=== PATIENT | male | born 1970 | race Caucasian/White ===

== ENCOUNTER 2021-06-13 11:17 | Inpatient (IN) | payer OTHER ==
[~2021-06-13] VITALS: Ht 180.3 cm; Wt 118.3 kg
--- NOTE | 2021-06-13 11:33 | NUR ---
PT BIBRA BLACK TARRY STOOL X10 DAYS, LAST BM WAS TODAY. DENIES PAIN. ABDOMEN SOFT AND NON-DISTENDED. WILL CONTINUE TO MONITOR THE PATIENT.
[2021-06-13 12:00] LABS: LYMPHOCYTES # (AUTO) 0.5 K/uL (0.8-4.8); MONOCYTES # (AUTO) 0.2 K/uL (0.1-1.30); WHITE BLOOD COUNT (AUTO) 2.7 K/uL (4.3-11.0)
[2021-06-13 12:04] LABS: CALCIUM, SERUM 7.9 mg/dL (8.5-10.1); POTASSIUM 3.3 mmol/L (3.5-5.1)
[2021-06-13 12:09] LABS: BASOPHILS % (AUTO) 0.1 % (0.0-2.0); EOSINOPHILS % (AUTO) 0.4 % (0.0-6.0); HEMATOCRIT 34 % (39-51); HEMOGLOBIN 11.4 g/dL (13.5-17.5); LYMPHOCYTES % (AUTO) 19.9 % (20.0-44.0); MEAN CORPUSCULAR HGB CONC 33 g/dl (31.0-36.0); MEAN CORPUSCULAR VOLUME 86 fL (80-96); MONOCYTES % (AUTO) 8.2 % (2.0-12.0); NEUTROPHILS # (AUTO) 1.9 K/uL (1.8-8.9); NEUTROPHILS % (AUTO) 71.4 % (43.0-81.0); RED BLOOD CELL COUNT(AUTO) 3.96 MIL/uL (4.5-6.0)
[2021-06-13 12:10] LABS: ALBUMIN 3.2 g/dL (3.4-5.0); BILIRUBIN,DIRECT 3.4 mg/dL (0.0-0.2); BILIRUBIN,TOTAL 5.4 mg/dL (0.2-1.0); TOTAL PROTEIN, SERUM 7.5 g/dL (6.4-8.2)
[2021-06-13 12:11] LABS: PLATELET COUNT (AUTO) 26 K/uL (150-450)
[2021-06-13] MEDS ORDERED: METF-866 PO (13:29)
[2021-06-13] MEDS ORDERED: OXYB-58 PO (13:29)
[2021-06-13] MEDS ORDERED: AMLO5TAB4 PO (13:29)
[2021-06-13 13:30] LABS: LYMPHOCYTES % (MANUAL) 21 % (16-48); MONOCYTES % (MANUAL) 8 % (0-11.0); NEUTROPHILS % (MANUAL) 71 (42-76)
--- NOTE | 2021-06-13 13:37 | NUR ---
[facility] PANEL CALLED VIA EXCHANGE - LESLEE FLORES
[2021-06-13] MEDS ORDERED: ONDANSETRON HCL/PF 4 MG/2 ML VIAL IVP PRN (14:00)
[2021-06-13] MEDS ORDERED: MAG HYDROX/AL HYDROX/SIMETH 30 ML UDC PO PRN (14:00)
[2021-06-13] MEDS ORDERED: MAGNESIUM HYDROXIDE 30 ML UDC PO PRN (14:00)
[2021-06-13] MEDS ORDERED: Z GUARD REMEDY 2 OZ OINT TP PRN (14:00)
[2021-06-13] MEDS ORDERED: DEXTROSE 50%-WATER 50 ML DISP.SYRIN IV PRN (14:30)
--- NOTE | 2021-06-13 15:03 | NUR ---
ROOM 314-1
--- NOTE | 2021-06-13 15:11 | NUR ---
REPORT GIVEN TO NURSE HOWE
--- NOTE | 2021-06-13 15:53 | NUR ---
THE PATIENT IS TRANSFERED TO ASSIGNED ROOM IN STABLE CONDITION AND PER POLICY.
--- NOTE | 2021-06-13 15:57 | NUR ---
MS/PRICING ASSOCIATE NOTES RECEIVED ENDORSEMENT FROM JAZZ AYALA. PATIENT CAME FROM THE ER VIA GURNEY. PATIENT IS ALERT AND ORIENTED X2, ABLE TO MAKE NEEDS KNOWN. STABLE ON ROOM AIR. AMBULATORY BUT UNSTEADY. IV ACCESS ON LEFT AC IS INTACT AND PATENT ON SALINE LOCK. ORIENTED PATIENT TO THE UNIT. SAFETY PRECAUTIONS IN PLACED: BED LOCKED ON LOWEST POSITION, SIDE RAILS UPX2, CALL LIGHT WITHIN REACH. WILL CONTINUE TO MONITOR PATIENT.
[2021-06-13 16:00] VITALS: BP 141/94
--- NOTE | 2021-06-13 16:16 | NUR ---
MS/RN NOTES- PATIENT STARTED THROWING UP, SHAKINESS. PER PATIENT HE IS HAVING WITHDRAWAL. HE CONSUMES 4 GALLONS OF VODKA A DAY AND 3 PACKS OF CIGARETTES A DAY. NOTIFIED MARK CAMILO. AWAITING RESPONSE. WILL CONTINUE TO MONITOR.
[2021-06-13] MEDS ORDERED: IV NS 0.9% 1,000 ML IV ONE (16:30)
[2021-06-13] MEDS: LORAZEPAM INJ 2 MG/ML VIAL IV PRN ×2 (16:32→20:59)
[2021-06-13] MEDS: PANTOPRAZOLE 40 MG VIAL IV SCH (17:11)
[2021-06-13] MEDS: METFORMIN 500 MG TABLET PO SCH (17:11)
[2021-06-13] MEDS: FERROUS SULFATE (325 MG) 325 MG/TAB TABLET PO SCH (17:12)
[2021-06-13] MEDS: BLOOD SUGAR DIAGNOSTIC 1 EACH STRIP IN SCH ×2 (17:40→21:58)
[2021-06-13] MEDS ORDERED: POTASSIUM CHLORIDE 10 MEQ/50 ML PREMIXED IVPB FOR PERIPHERAL LINE IV ONE (19:00)
[2021-06-13] MEDS: POTASSIUM CL. PREMIX PERIPHER. 50 ML IV SCH ×2 (19:49→20:53)
[2021-06-13 20:00] VITALS: BP 126/65
--- NOTE | 2021-06-13 20:59 | NUR ---
RN NOTES PT REPORTING NAUSEA AND REQUESTED ATIAN FOR WITHDRAWAL SYMPTOMS PRN ATIVAN GIVEN AND ZOFRAN GIVEN AND TOLERATED WELL.
[2021-06-13] MEDS ORDERED: Folic acid 1 MG in IV D5W 50 ML IV SCH (22:30)
[2021-06-13] MEDS ORDERED: Thiamine 100 MG in IV D5W 50 ML IV SCH (22:30)
--- NOTE | 2021-06-13 23:21 | NUR ---
RN NOTES RECEIVED ORDERS FORM DR STRONG TO CHANGE PT DIET TO CLEAR LIQUIDS. AND ORDERED THIAMINE , FOLIC ACID AND MVI IN IV FLUID PER PHARMACY. ORDERS NOTED AND CARRIED OUT.
[2021-06-13] MEDS ORDERED: Thiamine 100 MG/ML VIAL ONE (23:27)
[2021-06-14] VITALS (7 sets, daily range): BP systolic 124–143; BP diastolic 70–92
--- NOTE | 2021-06-14 00:56 | NUR ---
RN NOTES RECEIVED ORDER FROM DR STRONG TO TRANSFUSE I UNIT OF PLATELETS CONSENT OBTAINED AT BEDSIDE PT UNABLE TO SIGN 2 RN WITNESSED SIGNED CONSENT. UNIT PICKED UP VERIFIED WITH NINI AYALA NO DISCOLORATION IN PRODUCT NOTED.PRE INFUSION VITAL SIGNS CHECKED WITHIN NORMAL LIMITS. WILL CONTINUE TO MONITOR.
[2021-06-14] MEDS: LORAZEPAM INJ 2 MG/ML VIAL IV PRN ×4 (01:47→21:35)
--- NOTE | 2021-06-14 01:49 | NUR ---
RN NOTES PT PLATELETS TRANSFUSION FINISHED. PT VS WITHIN NOTNAL LIMITS. PT REQUESTING PRN ATIVAN FOR WITHDRAWAL SYMPTOMS ATIVAN GIVEN AND TOLERATED WELL. WILL CONTINUE TO MONITOR.
[2021-06-14] MEDS: BLOOD SUGAR DIAGNOSTIC 1 EACH STRIP IN SCH ×4 (06:32→21:35)
--- NOTE | 2021-06-14 06:32 | NUR ---
RN NOTES PTS BS IS 89 JUICE WAS GIVEN. PT A/O X2 CONFUSED HAVING WITHDRAWAL SYMPTOMS ON ROOM AIR TOLERATING WELL. BED ALARM ON AT THI TIME ALL NURSING NEEDS MET THROUGHOUT THE SHIFT. WILL ENDORSE CARE TO DAY SHIFT NURSE.
--- NOTE | 2021-06-14 07:20 | NUR ---
RN OPENING NOTE RECEIVED PATIENT IN BED. A/O X 2-3. WITH SITTER DIAZ AT THE BED SIDE. ON ROOM AIR, NO SOB NOTED. IN NO APPARENT DISTRESS. IV ACCESS ON R WRIST #20 G, NS RUNNING AT 75 ML/HR, INTACT AND PATENT. SAFETY MEASURES MAINTAINED. BED IN LOWEST POSITION, BRAKES LOCKED. SIDE RAILS UP X2. CALL LIGHT WITHIN REACH. WILL CONTINUE PLAN OF CARE.
[2021-06-14] MEDS ORDERED: MVI ADULT 10ML VIAL = 1AMP 10 ML in IV NS 0.9% 1,000 ML IV PRN (07:30)
[2021-06-14 07:40] LABS: EOSINOPHILS % (AUTO) 0.2 % (0.0-6.0); HEMATOCRIT 33 % (39-51); HEMOGLOBIN 10.9 g/dL (13.5-17.5); LYMPHOCYTES # (AUTO) 0.1 K/uL (0.8-4.8); LYMPHOCYTES % (AUTO) 4.4 % (20.0-44.0); MEAN CORPUSCULAR HGB CONC 33 g/dl (31.0-36.0); MEAN CORPUSCULAR VOLUME 87 fL (80-96); MONOCYTES % (AUTO) 2.3 % (2.0-12.0); NEUTROPHILS # (AUTO) 1.7 K/uL (1.8-8.9); NEUTROPHILS % (AUTO) 93.1 % (43.0-81.0); RED BLOOD CELL COUNT(AUTO) 3.79 MIL/uL (4.5-6.0)
--- NOTE | 2021-06-14 07:55 | NUR ---
JAMIE CALVO CALLED FROM THE LAB REGARDING CRITICAL VALUE, WBC IS 1.8, CARLOS PULIDO WAS INFORMED LATE D/T DOCTOR'S LIST WAS NOT READY UNTIL 9 PM. AWAITING FOR ORDERS. Addendum: 06/14/21 at 929 by MELE JOSUE CORRECTION: WAS NOTE READY UNTIL 0900 AM Addendum: 06/14/21 at 31 by MELE JOSUE WRONG ACCOUNT. USER ACCOUNT WAS CALIXTO BAILEY RN
[2021-06-14 07:56] LABS: WHITE BLOOD COUNT (AUTO) 1.8 K/uL (4.3-11.0)
[2021-06-14 07:57] LABS: PLATELET COUNT (AUTO) 15 K/uL (150-450)
--- NOTE | 2021-06-14 08:00 | NUR ---
RN NOTES PATIENT REFUSING TELE MONITOR, EDUCATE ABOUT IMPORTANCE BUT STILL REFUSED.
[2021-06-14 08:09] LABS: THYROID STIMULATING HORMONE 0.454 uIU/mL (0.358-3.74)
[2021-06-14 08:36] LABS: CALCIUM, SERUM 8.1 mg/dL (8.5-10.1); CREATININE 1.1 mg/dL (0.6-1.3); MAGNESIUM 1.6 mg/dL (1.8-2.4); PHOSPHORUS 1.8 mg/dL (2.5-4.9); POTASSIUM 3.5 mmol/L (3.5-5.1)
[2021-06-14] MEDS: AMLODIPINE BESYLATE 5 MG TABLET PO SCH (08:37)
[2021-06-14] MEDS: OXYBUTYNIN CHLORIDE ER 5 MG TAB PO SCH (08:38)
[2021-06-14] MEDS: PANTOPRAZOLE 40 MG VIAL IV SCH ×2 (08:38→16:06)
[2021-06-14] MEDS: METFORMIN 500 MG TABLET PO SCH ×2 (08:38→16:06)
[2021-06-14] MEDS: FERROUS SULFATE (325 MG) 325 MG/TAB TABLET PO SCH ×2 (08:38→16:06)
[2021-06-14] MEDS ORDERED: PHARMACY ADD 1 AMP MVI TO IVF DAILY ONE BAG XX PRN (09:00)
[2021-06-14] MEDS ORDERED: MVI-12 10ML IV ONE (09:00)
[2021-06-14] MEDS ORDERED: Folic acid 1 MG in IV D5W 50 ML IV ONE (09:00)
[2021-06-14] MEDS ORDERED: Folic acid 1 MG in IV D5W 50 ML IV SCH (09:00)
--- NOTE | 2021-06-14 09:44 | NUR ---
RN NOTE RECEIVED ORDER FROM CARLOS PULIDO NP TO INFUSE 1 UNIT OF PLATELET. RECEIVED ORDER AND CARRIED OUT. INFORMED ALSO ABOUT REFUSAL OF TELE MONITOR.
[2021-06-14] MEDS: Magnesium 1GM/D5W 100ML PREMIX 100 ML IV SCH ×2 (10:22→12:17)
[2021-06-14 11:06] LABS: LYMPHOCYTES % (MANUAL) 3 % (16-48); MONOCYTES % (MANUAL) 2 % (0-11.0); NEUTROPHILS % (MANUAL) 95 (42-76)
[2021-06-14] MEDS ORDERED: NEUTRA PHOS 1 POWD.PACKET PO ONE (15:30)
[2021-06-14] MEDS ORDERED: OCTREOTIDE 50 MCG in IV NS 0.9% 50 ML IJ ONE (16:00)
--- NOTE | 2021-06-14 16:01 | NUR ---
RN NOTE NPO AFTER MIDNIGHT ORDERED BY CARLOS PULIDO REGULATORY ANALYST
[2021-06-14] MEDS ORDERED: IOHEXOL-300 100 ML VIAL IV ONE (16:56)
[2021-06-14] MEDS ORDERED: IV NS 0.9% 250 ML IV ONE (16:56)
[2021-06-14] MEDS ORDERED: CT SWABBABLE VALVE TRANS SET 1 EA INFUS.SET MC ONE (16:56)
--- NOTE | 2021-06-14 18:15 | NUR ---
RN CLOSING NOTE PATIENT RESTING IN BED. A/O X 2-3. ON ROOM AIR, NO SOB NOTED. IN NO APPARENT DISTRESS. IV ACCESS ON R WRIST #20 G AND L AC #20 G, BOTH INTACT AND PATENT. DUE MEDS GIVEN ORDERED. ALL NEEDS HAVE BEEN MET AND ATTENDED. SAFETY MEASURES MAINTAINED. BED IN LOWEST POSITION, BRAKES LOCKED. SIDE RAILS UP X2. CALL LIGHT WITHIN REACH. WILL ENDORSE CONTINUITY OF CARE TO ONCOMING SHIFT. .
--- NOTE | 2021-06-14 18:17 | NUR ---
RN NOTE STILL WAITING FOR PLATELET AVAILABILITY.
[2021-06-14] MEDS: LACTULOSE 10 G/15 ML UDC (PYXIS) PO PRN (18:27)
[2021-06-14] MEDS: OCTREOTIDE 500 MCG in IV NS 0.9% 99 ML IV PRN (18:42)
--- NOTE | 2021-06-14 20:04 | NUR ---
RN NOTES RECEIVED PATIENT IN BED, ALERT/ORIENTED X3, FORGETFUL, STABLE ON ROOM AIR, LETHARGIC, ON TELEMETRY, REFUSING TELEMETRY MONITORING, INFUSING SANDOSTATIN AT 10 ML/HR AND MVI AT 75 ML/HR. KEPT SAFE, WILL CONTINUE TO MONITOR.
[2021-06-14] MEDS: INSULIN REGULAR, HUMAN 100 UNIT/ML 3 ML VIAL SQ PRN (21:43)
--- NOTE | 2021-06-14 23:08 | NUR ---
RN NOTES PLATELET NOT AVAILABLE YET.
[2021-06-15] VITALS (8 sets, daily range): BP systolic 138–160; BP diastolic 63–87
[2021-06-15] MEDS: LORAZEPAM INJ 2 MG/ML VIAL IV PRN ×4 (01:31→21:35)
[2021-06-15] MEDS: IV NS 0.9% 1,000 ML IV PRN (05:00)
[2021-06-15] MEDS: OCTREOTIDE 500 MCG in IV NS 0.9% 99 ML IV PRN (05:41)
[2021-06-15] MEDS: INSULIN REGULAR, HUMAN 100 UNIT/ML 3 ML VIAL SQ PRN (06:03)
[2021-06-15] MEDS: BLOOD SUGAR DIAGNOSTIC 1 EACH STRIP IN SCH ×4 (06:08→23:37)
--- NOTE | 2021-06-15 06:16 | NUR ---
RN NOTES ALERT/ORIENTED X4, ROOM AIR, RESTLESS AT TIMES, TREMORS NOTED, NO DIAPHORESIS, NO HALLUCINATIONS, COOPERATIVE. ATIVAN GIVEN X2, PLATELET NOT AVAILABLE, WILL NEED TRANSFUSION WHEN AVAILABLE. SANDOSTATIN AT 50 MCG/HR OR 10 ML/HR, COMPLETED MVI, NOW ON NS AT 75 ML/HR, LAC #20 AND RIGHT WRIST #20. HOLD METFORMIN TILL 06/16/21 AT 1800, NPO SINCE AFTER MIDNIGHT, FOR GI CONSULT TODAY SECONDARY TO GI BLEEDING, CT ABDOMEN COMPLETED, AWAITING RESULTS, FOR DRESS CAP MAKER CONSULT.
--- NOTE | 2021-06-15 07:21 | NUR ---
RN OPENING NOTE- PATIENT IN BED. EASILY AWAKENED. ON ROOM AIR, NO SOB NOTED. IN NO APPARENT DISTRESS. IV ACCESS ON R WRIST #20 G, NS RUNNING AT 75 ML/HR, INTACT AND PATENT. SAFETY MEASURES MAINTAINED. BED IN LOWEST POSITION, BED LOCKED. SIDE RAILS UP X2. CALL LIGHT WITHIN REACH. WILL CONTINUE PLAN OF CARE.
[2021-06-15 07:28] LABS: BASOPHILS % (AUTO) 0.4 % (0.0-2.0); EOSINOPHILS % (AUTO) 2.3 % (0.0-6.0); HEMATOCRIT 31 % (39-51); HEMOGLOBIN 10.5 g/dL (13.5-17.5); LYMPHOCYTES # (AUTO) 0.3 K/uL (0.8-4.8); LYMPHOCYTES % (AUTO) 20.5 % (20.0-44.0); MEAN CORPUSCULAR HGB CONC 33 g/dl (31.0-36.0); MEAN CORPUSCULAR VOLUME 87 fL (80-96); MONOCYTES # (AUTO) 0.1 K/uL (0.1-1.30); MONOCYTES % (AUTO) 9.8 % (2.0-12.0); NEUTROPHILS # (AUTO) 0.9 K/uL (1.8-8.9)
[2021-06-15 07:54] LABS: PLATELET COUNT (AUTO) 14 K/uL (150-450); WHITE BLOOD COUNT (AUTO) 1.3 K/uL (4.3-11.0)
[2021-06-15 07:55] LABS: ALBUMIN 2.8 g/dL (3.4-5.0); BILIRUBIN,DIRECT 3.7 mg/dL (0.0-0.2); BILIRUBIN,TOTAL 6.2 mg/dL (0.2-1.0); CALCIUM, SERUM 7.9 mg/dL (8.5-10.1); MAGNESIUM 1.8 mg/dL (1.8-2.4); POTASSIUM 3.3 mmol/L (3.5-5.1); TOTAL PROTEIN, SERUM 6.9 g/dL (6.4-8.2)
--- NOTE | 2021-06-15 08:00 | NUR ---
RN NOTE- LAB NOTIFIED THIS RN CRITICAL LAB VALUES - WBC- 1.3, PLT - 14. BLOOD BANK NOTIFIED. ORDER FOR PLATELETS - PENDING ARRIVAL
[2021-06-15] MEDS: PANTOPRAZOLE 40 MG VIAL IV SCH ×2 (08:25→17:00)
[2021-06-15] MEDS: AMLODIPINE BESYLATE 5 MG TABLET PO SCH (08:25)
[2021-06-15] MEDS: FOLIC ACID 1 MG TABLET PO SCH (08:26)
[2021-06-15] MEDS: OXYBUTYNIN CHLORIDE ER 5 MG TAB PO SCH (08:26)
[2021-06-15] MEDS: METFORMIN 500 MG TABLET PO SCH (08:26)
[2021-06-15] MEDS: THIAMINE HCL 100 MG TABLET PO SCH (08:26)
[2021-06-15] MEDS: FERROUS SULFATE (325 MG) 325 MG/TAB TABLET PO SCH ×2 (08:26→17:00)
--- NOTE | 2021-06-15 08:37 | NUR ---
RN NOTE- ANXIETY, DISCOMFORT, IRRITABILITY. ATIVAN 2 MG ADMINISTERED. MONITORING FOR DETOX SX
[2021-06-15] MEDS ORDERED: POTASSIUM CHLORIDE 20 MEQ TAB.PRT.SR PO SCH (09:30)
--- NOTE | 2021-06-15 10:27 | NUR ---
RN NOTE/ TRANSFUSION. BP- 141/83, HR- 74, RR- 18, T- 97.9 ONE UNIT PLATELETS BEGAN INFUSION AT THIS TIME. PLATELETS 14
[2021-06-15] MEDS ORDERED: K PHOS NEUTRAL 250 MG TABLET PO ONE (10:30)
[2021-06-15] MEDS: LACTULOSE 10 G/15 ML UDC (PYXIS) PO PRN (11:10)
[2021-06-15] MEDS: LACTULOSE UDC 200 G in SODIUM CHLORIDE IRRIG SOLUTION 400 ML IR SCH ×4 (11:38→23:00)
--- NOTE | 2021-06-15 12:30 | NUR ---
RN NOTE / TRANSFUSION PLATELETS COMPLETED. BP- 140/78, HR- 74, RR- 18, T- 07.4. TOLERATED WELL.
--- NOTE | 2021-06-15 12:37 | NUR ---
RN NOTE- PT WATERY BM IN BR W ASSIST. VOIDING . UNDERGOING VARIOUS TESTS AND STUDIES .
--- NOTE | 2021-06-15 13:55 | NUR ---
RN NOTE- ANXIETY RESTLESSNESS. ATIVAN 2 MG ADMINISTERED
[2021-06-15] MEDS ORDERED: PIPERACILLIN /TAZOBACTAM 4.5 G in IV D5W 50 ML IV ONE (14:00)
[2021-06-15] MEDS ORDERED: PIPERACILLIN /TAZOBACTAM 4.5 G in IV D5W 50 ML IV SCH (14:00)
--- NOTE | 2021-06-15 14:15 | NUR ---
RN NOTE- IV HEP LOCK TO RT ARM AND LT ARM BOTH LEAKING AND COMPROMISED. BOTH REMOVED AT PRESENT. NEW HEPLOCK 22G INSERTED TO RT HAND .
[2021-06-15] MEDS: TBO-FILGRASTIM 480 MCG/0.8 ML ML SQ SCH (15:31)
[2021-06-15 15:37] LABS: IRON, SERUM 70 ug/dl (50-175); TOTAL IRON BINDING CAPACITY 318 ug/dl (250-450)
[2021-06-15 15:54] LABS: FERRITIN 142 ng/mL (8-388)
[2021-06-15] MEDS ORDERED: ANESTHESIA TRAY IN PYXIS 1 EA TRAY MC ONE (16:05)
--- NOTE | 2021-06-15 16:06 | NUR ---
RN NOTE- OR NOTIFIED THIS RN ABOUT SURGERY FOR THIS PT TODAY. ORDERED CONSENTS, QUESTION FORM, SURGICAL PACK. PRINTED, HAD PT SIGN AND PLACED IN CHART
[2021-06-15] MEDS ORDERED: FAMOTIDINE/PF INJ 20 MG/2 ML VIAL IV ONE (16:18)
--- NOTE | 2021-06-15 16:18 | NUR ---
RN NOTE- TO SURGICAL SUITE / PROCEDURE
[2021-06-15] MEDS ORDERED: SUCCINYLCHOLINE CHLORIDE 20 MG/ML VIAL ONE (16:19)
[2021-06-15] MEDS ORDERED: ACETAMINOPHEN 325 MG TABLET PO ONE (16:30)
[2021-06-15] MEDS ORDERED: diphenhydrAMINE HCL 50 MG/ML VIAL IV ONE (16:30)
[2021-06-15] MEDS ORDERED: PHYTONADIONE INJ 10 MG/1 ML AMPUL SQ ONE (17:00)
--- NOTE | 2021-06-15 18:00 | NUR ---
RN NOTE- PT RETURNED FROM SURGICAL SUITE- DX- ESOPHAGITIS, VARICES. BP- 138/64, HR-78. RR-22. T- 98.6, O2 SATS 95% 2L PM. PT COMFORTABLE, SLEEPY. IVF NS AT 75/HR. SIDE RAILS UP, BED LOCKED. MONITOR/ ASSIST
--- NOTE | 2021-06-15 18:38 | NUR ---
RN CLOSING NOTE- PT IN BED ASLEEP, NO DISTRESS, VS STABLE, NEEDS ATTENDED, IVF NS 75/HR TO RT HAND 22G HEP LOCK. O2 AT 2LPM VIA NC THOUGH PT SATS 96% RA. SIDE RAILS UP, BED LOCKED, CALL LIGHT IN REACH.
--- NOTE | 2021-06-15 19:24 | NUR ---
MS RN NOTES PT IN BED ASLEEP, NO DISTRESS NO PAIN OR DISCOMFORT NOTED, IVF NS 75/HR TO RT HAND 22G HEP LOCK. O2 AT 2LPM VIA NC FOR COMFORT.. SIDE RAILS UP, BED LOCKED, CALL LIGHT IN REACH. WILL CONTINUE TO MONITOR.
[2021-06-15 20:27] LABS: EOSINOPHILS % (MANUAL) 4 % (0-4); LYMPHOCYTES % (MANUAL) 26 % (16-48); MONOCYTES % (MANUAL) 2 % (0-11.0)
[2021-06-15 20:28] LABS: NEUTROPHILS % (MANUAL) 68 (42-76)
[2021-06-15] MEDS: PIPERACILLIN /TAZOBACTAM 3.375 G in IV D5W 100 ML IV SCH (20:35)
--- NOTE | 2021-06-15 22:01 | NUR ---
MS RN NOTES PT IV ACCESS PULLED OUT NEW ACCESS ON THE RIGHT HAND 22G FLUSHING WELL. PRN ATIVAN GIVEN FOR WITHDRAWAL SYMPTOMS OBTAINED CONSENT FOR HIDA SCAN AND CT W CONTRAST PLACED IN CHART. WILL CONTINUE TO MONITOR.
[2021-06-16] VITALS (15 sets, daily range): BP systolic 116–173; BP diastolic 68–98
[2021-06-16] MEDS: LACTULOSE UDC 200 G in SODIUM CHLORIDE IRRIG SOLUTION 400 ML IR SCH ×2 (03:00→06:39)
[2021-06-16] MEDS: PIPERACILLIN /TAZOBACTAM 3.375 G in IV D5W 100 ML IV SCH ×2 (03:15→14:55)
[2021-06-16] MEDS: LORAZEPAM INJ 2 MG/ML VIAL IV PRN ×3 (03:29→16:05)
--- NOTE | 2021-06-16 03:32 | NUR ---
MS RN NOTES PRN ATIVAN GIVEN FOR WITHDRAWAL SYMPTOMS TOLERATED WELL. PULLED OUT IV NOW HAS IV SITE ON THE L HAND 22G WILL OCNTIUE TO MONITOR.
[2021-06-16] MEDS: BLOOD SUGAR DIAGNOSTIC 1 EACH STRIP IN SCH ×3 (05:45→17:29)
--- NOTE | 2021-06-16 06:31 | NUR ---
MS RN NOTES PT IN BED ASLEEP, NO DISTRESS NO PAIN OR DISCOMFORT NOTED RT HAND 22G HEP LOCK. ON.SIDE RAILS UP, BED LOCKED, CALL LIGHT IN REACH. WILL ENDORSE CARE TO DAY SHIFT NURSE.
--- NOTE | 2021-06-16 06:49 | NUR ---
A 20g IV is needed in the mid-forearm or AC to perform the Multiphase Liver Mass CT scan. 22g IV in the hand will not work. Please call Radiology at ex. [phone] when 20g IV is inserted and patient is ready.
[2021-06-16 07:14] LABS: BASOPHILS % (AUTO) 0.2 % (0.0-2.0); EOSINOPHILS % (AUTO) 0.6 % (0.0-6.0); HEMATOCRIT 31 % (39-51); HEMOGLOBIN 10.8 g/dL (13.5-17.5); LYMPHOCYTES # (AUTO) 0.2 K/uL (0.8-4.8); LYMPHOCYTES % (AUTO) 5.7 % (20.0-44.0); MEAN CORPUSCULAR HGB CONC 34 g/dl (31.0-36.0); MEAN CORPUSCULAR VOLUME 87 fL (80-96); MONOCYTES # (AUTO) 0.2 K/uL (0.1-1.30); MONOCYTES % (AUTO) 4.4 % (2.0-12.0); NEUTROPHILS # (AUTO) 3.7 K/uL (1.8-8.9); NEUTROPHILS % (AUTO) 89.1 % (43.0-81.0); RED BLOOD CELL COUNT(AUTO) 3.59 MIL/uL (4.5-6.0); WHITE BLOOD COUNT (AUTO) 4.1 K/uL (4.3-11.0)
[2021-06-16 07:30] LABS: PLATELET COUNT (AUTO) 17 K/uL (150-450)
--- NOTE | 2021-06-16 07:34 | NUR ---
MS RN OPENING NOTE Patient in bed, awake. A/O x 3. Stable on room air, breathing evenly and unlabored. IV access on right hand #22G, intact and patent. Safety measures in place: bed in low, locked position; siderails up x 2; call light within reach; bed alarm on. Will continue to monitor.
[2021-06-16 07:39] LABS: D-DIMER 6.1 mg/L(FEU (0.17-0.50)
--- NOTE | 2021-06-16 07:43 | NUR ---
RN NOTE LAB CALLED CRITICAL VALUE OF 17 PLATELETS. STANDING ORDER TO TRANSFUSE IF BELOW < 20. LAB NOTIFIED FOR STAT PLATELETS. ORDER PLACED IN CHART, AWARE. REEDUCATED PATIENT ON TRANSFUSION REACTIONS AND RECONFIRMED CONSENT. PATIENT VERBALIZED UNDERSTANDING AT THIS TIME. WILL CONTINUE TO MONITOR
[2021-06-16 07:47] LABS: CALCIUM, SERUM 8.1 mg/dL (8.5-10.1); MAGNESIUM 1.6 mg/dL (1.8-2.4); PHOSPHORUS 1.4 mg/dL (2.5-4.9); POTASSIUM 3.3 mmol/L (3.5-5.1)
[2021-06-16] MEDS: FERROUS SULFATE (325 MG) 325 MG/TAB TABLET PO SCH ×3 (08:06→17:09)
[2021-06-16] MEDS: OXYBUTYNIN CHLORIDE ER 5 MG TAB PO SCH (08:06)
[2021-06-16] MEDS: AMLODIPINE BESYLATE 5 MG TABLET PO SCH (08:07)
[2021-06-16] MEDS: THIAMINE HCL 100 MG TABLET PO SCH (08:07)
[2021-06-16] MEDS: FOLIC ACID 1 MG TABLET PO SCH (08:07)
[2021-06-16] MEDS: PANTOPRAZOLE 40 MG VIAL IV SCH ×3 (08:17→17:09)
--- NOTE | 2021-06-16 08:28 | NUR ---
RN NOTE GAVE NEW ORDER FOR 2 UNITS OF FFP AND 1 UNIT OF PLATELETS STAT, LAB NOTIFIED. WILL CONTINUE TO MONITOR
--- NOTE | 2021-06-16 08:47 | NUR ---
SS consult requested for homelessness. SW will follow up at a later time.
[2021-06-16] MEDS ORDERED: Magnesium 1GM/D5W 100ML PREMIX 100 ML IV SCH (10:00)
[2021-06-16 10:07] LABS: AFP, TUMOR MARKER 2.9 ng/mL (0.0-8.3)
[2021-06-16 10:27] LABS: BAND % (MANUAL) 10 % (0.0-5.0); LYMPHOCYTES % (MANUAL) 8 % (16-48); METAMYELOCYTES % 1 % (0-0); MONOCYTES % (MANUAL) 2 % (0-11.0); MYELOCYTES % 1 % (0-0); NEUTROPHILS % (MANUAL) 78 (42-76)
[2021-06-16] MEDS ORDERED: POTASSIUM CHLORIDE 20 MEQ TAB.PRT.SR PO SCH ×2 (11:00→12:00)
[2021-06-16] MEDS ORDERED: MAGNESIUM OXIDE 400 MG TABLET PO ONE (11:00)
[2021-06-16] MEDS ORDERED: Sodium Phosphate 15 MMOL in IV NS 0.9% 250 ML IV SCH (11:00)
[2021-06-16] MEDS ORDERED: K PHOS NEUTRAL 250 MG TABLET PO ONE (11:00)
[2021-06-16] MEDS ORDERED: CT SWABBABLE VALVE TRANS SET 1 EA INFUS.SET MC ONE (11:19)
[2021-06-16] MEDS ORDERED: IOHEXOL-350 100 ML VIAL IV ONE (11:19)
--- NOTE | 2021-06-16 11:21 | NUR ---
NM: HIDA SCAN WAS COMPLETED. TECH:RB
[2021-06-16] MEDS: MULTIVITAMINS,THERAGRAN 1 UDTAB TABLET PO SCH (11:44)
--- NOTE | 2021-06-16 11:58 | NUR ---
RN NOTE 1 UNIT FRESH FROZEN PLASMA INITIATED VITALS DOCUMENTED. PATIENT REEDUCATED ON TRANSFUSION REACTIONS, VERBALIZED UNDERSTANDING, WILL CONTINUE TO MONITOR
[2021-06-16] MEDS ORDERED: diphenhydrAMINE HCL 50 MG/ML VIAL IV PRN (12:00)
[2021-06-16] MEDS ORDERED: ACETAMINOPHEN 325 MG TABLET PO PRN (12:00)
[2021-06-16] MEDS ORDERED: POTASSIUM CL. PREMIX PERIPHER. 50 ML IV SCH (12:00)
[2021-06-16] MEDS: ZINC SULFATE 220 MG CAPSULE PO SCH (12:06)
[2021-06-16] MEDS: DIAZEPAM 5 MG TABLET PO SCH ×2 (12:07→23:32)
--- NOTE | 2021-06-16 13:00 | NUR ---
RN NOTE MIDLINE PLACED ON PATIENT LEFT UPPER ARM # 18 GAUGE WRAPPED WITH KERLIX
--- NOTE | 2021-06-16 14:35 | NUR ---
RN NOTE 1 Unit of Platelets initiated at 1435, initial vital signs as follows: BP-155/102, Temp-97.9, RR-18, RI-86. Patient re-educated on transfusion reactions, verbalized understanding. Will continue to monitor.
[2021-06-16] MEDS: TBO-FILGRASTIM 480 MCG/0.8 ML ML SQ SCH (15:06)
--- NOTE | 2021-06-16 16:20 | NUR ---
RN NOTE Transfusion of 1 unit Platelet ended at 1420. No s/s of allergic reactions or distress noted. Vital signs as follows: Temp- 97.6, NM- 88, RR- 15, BP-157/68. Will continue to monitor.
--- NOTE | 2021-06-16 16:23 | NUR ---
"SS consult SS consult requested for homelessness. Pt. is a 51-year old male who presented to the ER for evaluation of tarry stools for the past 10 days per the EMR. Pt. stated he was brought in for drinking. Pt. stated he has fallen off a sheryl in the past because he was intoxicated. Upon SS consult, pt. is A&O x2 (pt. not alert to date and situation) and appeared unkempt. Pt. presented with a dysphoric mood and slurred speech. Pt. was disoriented. Per EMR, the pt. was administered Ativan at 9am via an IV. Pt. appears drowsy. SW explored pt.s living situation. Pt. stated they have been homeless for the past 7 years. SW offered homeless resources and pt. accepted. SW explored pt.s social support. Pt. stated he had an uncle but did not provide name or phone number. Pt. stated his uncle did not live in [place] but they spoke on the phone. Pt. stated they have no friends or family in [place]. SW explored if pt. was ambulatory. Pt. stated they wanted a walker due to lower back pain. PONCHO will notify nursing upon DC. PONCHO explored pt.s financial status. Pt. stated they were not receiving food stamps, GE, SSI or Disability. PONCHO explored pt.s substance use hx. Pt. stated they have been sober for the last 4 months. Pt. denies drug use. Per EMR, the pt. is in acute alcohol withdrawal due to heavy alcohol use. PONCHO explored pt.s psychiatric hx. Pt. stated they are diagnosed with bipolar disorder but doesnt see a doctor or use medication. Pt. denied SI/HI. Pt. denied visual/auditory hallucinations. Plan: Pt. stated he would like custodial placement. Upon discharge, PONCHO discussed the discharge plan with pt.s nurse. PONCHO will follow up the day of discharge with pt.s nurse for custodial placement. Year-round shelters: [facility] [place] [address] [place] [address] ; [facility] [place] [address] [place] [address]; [facility] [id number] [facility]. [facility] [address] [place] Shelters: [facility] Provider: [facility] [place] Address: [facility] NAngel [place]raz[place], [address] # of Beds: 47 Population Served: [facility] 6 | [facility] Dori Swan [place] Provider: [facility] Last Address: [address] [place] [address], [address] # of Beds: 66 Population Served: [facility] [place] Provider: [facility] Serve Address: [address] [facility], [address] # of Beds: 56 Population Served: [facility] [place] Provider: [facility] Address: [address] [facility], [address] # of Beds: 49 Population Served: [facility] 8 | [facility] Provider: [facility] Address: [address] [facility]. [place], [address] # of Beds: 37 Population Served: [facility] Hygiene: [facility] [place] [facility]: [address] [facility] ; [place] [facility] [address] [facility] ; [facility] [address] [facility] . Food Resources: [place] [facility] [address] [facility]; Meet Each Need with Dignity ([facility]) [address] [facility]; [facility] [address] [facility]; [facility] [address] [facility]. Mental Health resources provided: [facility] [address] [place] [address] ; [facility] [address] [facility] [address], [place] [address] ; [facility] Mental [facility] [address] [place] [address] ; [facility] [place] [address] Healthcare Clinics: [facility] [address] [facility], [address] [place]. [place] ; [facility] [address] [facility] [address] [place] [address]; [facility] [address] [facility] [phone]) [phone] Counseling--Outpatient [facility] [address] [facility] [place] [address] (Specializes in in-depth psychotherapy for emotional distress: anxiety, depression, interpersonal conflicts, life transitions, childhood abuse) [facility] [address] [place] [address] (Assist with solving problem marital difficulties, separation & divorce, aging parents, & grief, chronic & terminal illness) [facility] [address] [place] [address] (Deal with loss & grief, anxiety, marital difficulties) Homebound/Mental Health Services [address] [facility], [address] [place] [address] (Provide in-home mental services to people who are incapable of leaving their homes) [facility] for Needs of the Elderly Senior Service/Resource Center [address] [facility] [place] [address] [facility] [address] [facility] [place] [address] PSYCHIATRIC OUTPATIENT SERVICES [facility] Partial Hospitalization and Intensive Outpatient Program (Managed Care and [place] Only)[address] [facility] [phone] [facility] Partial Hospitalization and Outpatient [id number] [facility] [address] [place], [place] [phone] [facility] [id number] [facility] [address] [place], [place] [phone] [facility] Partial Hospitalization and Outpatient [id number] [place] [address], [phone] Substance Abuse resources provided included: [facility] Substance Abuse Self-Helpline ([facility]) ; [facility] [address] [facility]. [place] [address] ; [facility] [address] [facility] [address] ; [facility] [address] [facility] [place] [phone] ; [facility] [address] [facility] [phone] ; [facility] [address] [facility] [address] ; [facility] [address] [facility] [phone] ; [facility] Substance Abuse Helpline([facility] ; [facility] ; [facility]; [facility] [place]; [facility] [place]; [facility] [place]; [facility] [place]; [facility] [place]; [facility] [place]; [facility] [place]; Alcoholics Anonymous -SFV; Of-Ojlw-Imsdsmf ; Marijuana Anonymous -[facility]; Narcotics Anonymous www.na.org;"
[2021-06-16] MEDS: RIFAXIMIN 550 MG TABLET PO SCH ×2 (17:00→17:09)
[2021-06-16] MEDS: LACTULOSE 10 G/15 ML UDC (PYXIS) PO PRN (17:09)
--- NOTE | 2021-06-16 17:25 | NUR ---
RN NOTE PATIENT PULLED MIDLINE AND PERIPHERAL IV ACCESS. MD NOTIFIED WHO GAVE NEW ORDER FOR BILATERAL SOFT WRIST RESTRAINTS. REINSERTED IV # 20 GAUGE IN THE LEFT HAND
--- NOTE | 2021-06-16 17:29 | NUR ---
RN NOTE PATIENT IS ACTIVELY REFUSING ALL MEDICATIONS AT THIS TIME, MD AWARE WILL CONTINUE TRANSFUSIONS AND MONITORING
--- NOTE | 2021-06-16 17:44 | NUR ---
RN NOTE Transfusion of 1 unit of cryo No s/s of allergic reactions or distress noted. Vital signs as follows: Temp- 97.6, SD- 88, RR- 15, BP-157/68. Will continue to monitor.
--- NOTE | 2021-06-16 18:50 | NUR ---
MS RN CLOSING NOTE Patient in bed, awake. A/O x 3, able to make needs known. On room air, breathing evenly and unlabored. No SOB or s/s of distress noted. IV access on left hand #20G, intact and patent. Running FFP at 100ml/hr. Restraints on both wrist in place. Q2H safety checks performed. Safety measures maintained: bed in low, locked position; siderails up x 2; call light within reach; bed alarm on. Will endorse to file keeper nurse for BETSY.
--- NOTE | 2021-06-16 19:00 | NUR ---
in bed alert to nurse at his bed side wrist restaints on for his safety pulling out IVs and attempting to get oob FFP infusing at this time
[2021-06-17] VITALS: BP 144/88
[2021-06-17] MEDS: BLOOD SUGAR DIAGNOSTIC 1 EACH STRIP IN SCH ×5 (00:24→23:35)
[2021-06-17 00:31] VITALS: BP 150/93
[2021-06-17 01:59] VITALS: BP 128/78
[2021-06-17] MEDS: LORAZEPAM INJ 2 MG/ML VIAL IV PRN ×3 (02:17→14:54)
[2021-06-17] MEDS: OCTREOTIDE 500 MCG in IV NS 0.9% 99 ML IV PRN ×3 (04:14→23:45)
[2021-06-17] MEDS: IV NS 0.9% 1,000 ML IV PRN ×2 (04:30→16:24)
--- NOTE | 2021-06-17 04:31 | NUR ---
closing notes: 1 unit Cryo infused w/ a problem He managed to pull out his IV at the beginning of the shift prior 8PM , able to get an 18g in the right upper arm he is alert and orientated X2 wrist restraints on but he is strong and was able to snap the right wrist restraint off tearing the velco off unable to make him understand what is happening and being done to him for the good water and juice and applesauce given to him consumed 100% swallow w/o problem Ativan given X1 at 2 AM for agitation and attempting to climb OOB sandostatin infusing 10 ml hr no stools this 12 hours incontinent Urine patient needs close monitoring I sat outside his room the last 12 hours for his safety. bedbath given and linen changed 2 person assist
[2021-06-17 05:07] LABS: IMMUNOGLOBULIN A, SERUM 449 mg/dL (90-386); IMMUNOGLOBULIN G, SERUM 2057 mg/dL (603-1613); IMMUNOGLOBULIN M, SERUM 336 mg/dL (20-172)
[2021-06-17 07:06] LABS: *SPE A/G RATIO 0.9 (0.7-1.7); *SPE ALPHA-1-GLOBULIN 0.2 g/dL (0.0-0.4); *SPE ALPHA-2-GLOBULIN 0.4 g/dL (0.4-1.0); *SPE M-SPIKE Not Observed g/dL (Not Observed)
[2021-06-17 07:07] LABS: BASOPHILS % (AUTO) 0.1 % (0.0-2.0); EOSINOPHILS % (AUTO) 0.9 % (0.0-6.0); HEMATOCRIT 32 % (39-51); HEMOGLOBIN 10.8 g/dL (13.5-17.5); LYMPHOCYTES # (AUTO) 0.4 K/uL (0.8-4.8); LYMPHOCYTES % (AUTO) 9.8 % (20.0-44.0); MEAN CORPUSCULAR HGB CONC 34 g/dl (31.0-36.0); MEAN CORPUSCULAR VOLUME 88 fL (80-96); MONOCYTES # (AUTO) 0.5 K/uL (0.1-1.30); MONOCYTES % (AUTO) 12.3 % (2.0-12.0); NEUTROPHILS % (AUTO) 76.9 % (43.0-81.0); RED BLOOD CELL COUNT(AUTO) 3.61 MIL/uL (4.5-6.0); WHITE BLOOD COUNT (AUTO) 3.9 K/uL (4.3-11.0)
--- NOTE | 2021-06-17 07:25 | NUR ---
RN OPENING NOTE RECEIVED PATIENT IN BED. A/O X3. ON 02 AT 2 LPM VIA NC. NO SOB NOTED. IN NO APPARENT DISTRESS. ON BILATERAL SOFT RESTRAINT D/T PULLING OF IV LINES MULTIPLE TIMES, WILL REASSESS THIS MORNING. DENIES ANY PAIN AT THIS MOMENT. IV ACCESS AT LEONARD #18 G, NS RUNNING AT 75 ML/HR AND SANDOSTATIN RUNNING X 10 ML/HR. SAFETY MEASURES MAINTAINED. BED IN LOWEST POSITION, BRAKES LOCKED. SIDE RAILS UP X 2. CALL LIGHT WITHIN REACH. WILL CONTINUE PLAN OF CARE.
[2021-06-17 07:46] LABS: BILIRUBIN,DIRECT 4.6 mg/dL (0.0-0.2); BILIRUBIN,TOTAL 7.5 mg/dL (0.2-1.0); CALCIUM, SERUM 8.2 mg/dL (8.5-10.1); CREATININE 0.9 mg/dL (0.6-1.3); MAGNESIUM 1.6 mg/dL (1.8-2.4); PHOSPHORUS 2.1 mg/dL (2.5-4.9); POTASSIUM 3.3 mmol/L (3.5-5.1)
[2021-06-17 07:56] LABS: PLATELET COUNT (AUTO) 18 K/uL (150-450)
[2021-06-17 08:00] VITALS: BP 134/83
[2021-06-17] MEDS: ZINC SULFATE 220 MG CAPSULE PO SCH (08:24)
[2021-06-17] MEDS: FERROUS SULFATE (325 MG) 325 MG/TAB TABLET PO SCH ×2 (08:25→16:09)
[2021-06-17] MEDS: THIAMINE HCL 100 MG TABLET PO SCH (08:25)
[2021-06-17] MEDS: PANTOPRAZOLE 40 MG VIAL IV SCH ×2 (08:25→16:09)
[2021-06-17] MEDS: MULTIVITAMINS,THERAGRAN 1 UDTAB TABLET PO SCH (08:25)
[2021-06-17] MEDS: OXYBUTYNIN CHLORIDE ER 5 MG TAB PO SCH (08:25)
[2021-06-17] MEDS: RIFAXIMIN 550 MG TABLET PO SCH ×2 (08:25→16:09)
[2021-06-17] MEDS: FOLIC ACID 1 MG TABLET PO SCH (08:25)
[2021-06-17] MEDS: AMLODIPINE BESYLATE 5 MG TABLET PO SCH (08:29)
--- NOTE | 2021-06-17 09:31 | NUR ---
RN NOTE Received call from lab for a critical value, Platelet of 18. aware, no new orders. Addendum: 06/17/21 at 0933 by TARIQ WRIGHT RN Call received at 0803, informed at 08.
[2021-06-17] MEDS ORDERED: POTASSIUM CHLORIDE 20 MEQ TAB.PRT.SR PO SCH (10:00)
[2021-06-17] MEDS ORDERED: K PHOS NEUTRAL 250 MG TABLET PO ONE (10:00)
[2021-06-17] MEDS: DIAZEPAM 5 MG TABLET PO SCH ×2 (10:00→22:49)
[2021-06-17] MEDS ORDERED: MAGNESIUM OXIDE 400 MG TABLET PO ONE (10:00)
[2021-06-17] MEDS: ACETAMINOPHEN 325 MG TABLET PO PRN (11:58)
--- NOTE | 2021-06-17 12:15 | NUR ---
RN NOTE Patient refused Insulin. Educated on risks of not getting Insulin, still refused. Addendum: 06/17/21 at 1819 by TARIQ WRIGHT RN Glucose level is 158
[2021-06-17] MEDS: TBO-FILGRASTIM 480 MCG/0.8 ML ML SQ SCH (14:54)
[2021-06-17 16:00] VITALS: BP 141/80
--- NOTE | 2021-06-17 18:06 | NUR ---
RN CLOSING NOTE PATIENT RESTING IN BED. A/O X3. CURRENTLY ON ROOM AIR. NO SOB NOTED. IN NO APPARENT DISTRESS. 02 PRN FOR SUPPORT. PATIENT IS MORE ALERT AND COOPERATIVE. NO NEED FOR RESTRAINT AT THE MOMENT. DENIES ANY PAIN AND DISCOMFORT AT THIS MOMENT. IV ACCESS AT LEONARD #18 G, NS RUNNING AT 75 ML/HR AND SANDOSTATIN RUNNING X 10 ML/HR, BOTH INTACT AND PATENT. DUE MEDS GIVEN ORDERED. ALL NEEDS HAVE BEEN MET AND ATTENDED. SAFETY MEASURES MAINTAINED. BED IN LOWEST POSITION, BRAKES LOCKED. SIDE RAILS UP X 2. KEPT CALL LIGHT WITHIN REACH. WILL ENDORSE CONTINUITY OF CARE TO ONCOMING SHIFT.
--- NOTE | 2021-06-17 19:00 | NUR ---
received in bed alert and orientated x3 soft spoken call light within reach rails up and bed alarm on for safety urinal within reach
[2021-06-17 20:00] VITALS: BP 119/73
[2021-06-18] MEDS: LORAZEPAM INJ 2 MG/ML VIAL IV PRN ×3 (02:03→16:09)
[2021-06-18] MEDS: BLOOD SUGAR DIAGNOSTIC 1 EACH STRIP IN SCH ×4 (05:26→23:20)
[2021-06-18] MEDS: IV NS 0.9% 1,000 ML IV PRN ×2 (05:28→22:10)
--- NOTE | 2021-06-18 06:15 | NUR ---
closing notes: alert and orientated at times forgetful will get OOB unattended (bed Alarm sounding off) will see him standing urinating on the floor at times he will urinate in the urinal he enjoys eating many snacks served and consumed 100% no active bleeding this 12 hours
[2021-06-18 06:41] LABS: CALCIUM, SERUM 7.9 mg/dL (8.5-10.1); CREATININE 0.9 mg/dL (0.6-1.3); MAGNESIUM 1.5 mg/dL (1.8-2.4); PHOSPHORUS 1.9 mg/dL (2.5-4.9); POTASSIUM 3.6 mmol/L (3.5-5.1)
--- NOTE | 2021-06-18 07:29 | NUR ---
RN OPENING NOTE RECEIVED PATIENT IN BED. A/O X3. ON ROOM AIR. NO SOB NOTED. IN NO APPARENT DISTRESS. IV ACCESS AT LEVON #20 G, NS RUNNING AT 75 ML/HR AND SANDOSTATIN RUNNING X 10 ML/HR, BOTH INTACT AND PATENT. ABLE TO MA KE NEEDS KNOWN. SAFETY MEASURES MAINTAINED. BED IN LOWEST POSITION, BRAKES LOCKED. SIDE RAILS UP X 2. CALL LIGHT WITHIN REACH. WILL CONTINUE PLAN OF CARE. Addendum: 06/18/21 at 1025 by CALIXTO BAILEY RN 02 AT 2 LPM VIA NC PRN
[2021-06-18 08:00] VITALS: BP 131/84
[2021-06-18] MEDS: THIAMINE HCL 100 MG TABLET PO SCH (08:52)
[2021-06-18] MEDS: MULTIVITAMINS,THERAGRAN 1 UDTAB TABLET PO SCH (08:52)
[2021-06-18] MEDS: ZINC SULFATE 220 MG CAPSULE PO SCH (08:52)
[2021-06-18] MEDS: AMLODIPINE BESYLATE 5 MG TABLET PO SCH (08:52)
[2021-06-18] MEDS: FERROUS SULFATE (325 MG) 325 MG/TAB TABLET PO SCH ×2 (08:53→16:09)
[2021-06-18] MEDS: OXYBUTYNIN CHLORIDE ER 5 MG TAB PO SCH (08:53)
[2021-06-18] MEDS: PANTOPRAZOLE 40 MG VIAL IV SCH ×2 (08:53→16:09)
[2021-06-18] MEDS: RIFAXIMIN 550 MG TABLET PO SCH ×2 (08:53→16:09)
[2021-06-18] MEDS: FOLIC ACID 1 MG TABLET PO SCH (08:53)
[2021-06-18] MEDS: Magnesium 1GM/D5W 100ML PREMIX 100 ML IV SCH ×2 (09:38→10:39)
[2021-06-18] MEDS: ACETAMINOPHEN 325 MG TABLET PO PRN ×2 (09:48→21:32)
[2021-06-18] MEDS ORDERED: K PHOS NEUTRAL 250 MG TABLET PO ONE (10:00)
[2021-06-18] MEDS: DIAZEPAM 5 MG TABLET PO SCH ×2 (10:39→23:20)
[2021-06-18] MEDS: OCTREOTIDE 500 MCG in IV NS 0.9% 99 ML IV PRN (11:15)
[2021-06-18] MEDS: INSULIN REGULAR, HUMAN 100 UNIT/ML 3 ML VIAL SQ PRN (12:05)
[2021-06-18 12:50] LABS: BASOPHILS % (AUTO) 0.6 % (0.0-2.0); EOSINOPHILS % (AUTO) 1.3 % (0.0-6.0); HEMATOCRIT 31 % (39-51); HEMOGLOBIN 10.4 g/dL (13.5-17.5); LYMPHOCYTES # (AUTO) 0.4 K/uL (0.8-4.8); LYMPHOCYTES % (AUTO) 9.8 % (20.0-44.0); MEAN CORPUSCULAR HGB CONC 33 g/dl (31.0-36.0); MEAN CORPUSCULAR VOLUME 89 fL (80-96); MONOCYTES # (AUTO) 0.7 K/uL (0.1-1.30); MONOCYTES % (AUTO) 17.3 % (2.0-12.0); NEUTROPHILS # (AUTO) 2.7 K/uL (1.8-8.9); WHITE BLOOD COUNT (AUTO) 3.8 K/uL (4.3-11.0)
[2021-06-18 13:39] LABS: PLATELET COUNT (AUTO) 18 K/uL (150-450)
--- NOTE | 2021-06-18 13:39 | NUR ---
JAMIE GUERRA FROM THE LAB CALLED REGARDING CRITICAL VALUE, PLATELET IS 18. READ BACK COMPLETED. Addendum: 06/18/21 at 1458 by CALIXTO BAILEY RN SHLOMO MOSQUERA IS MADE AWARE. NO NEW ORDERS.
[2021-06-18] MEDS: LACTULOSE 10 G/15 ML UDC (PYXIS) PO PRN (15:04)
[2021-06-18 16:00] VITALS: BP 131/72
--- NOTE | 2021-06-18 18:06 | NUR ---
RN CLOSING NOTE PATIENT RESTING IN BED. A/O X2-3. ON ROOM AIR, SATURATING WELL AT 98%. NO SOB NOTED. IN NO APPARENT DISTRESS. IV ACCESS AT LEVON #22 G, NS RUNNING AT 75 ML/HR AND SANDOSTATIN RUNNING X 10 ML/HR, BOTH INTACT AND PATENT. DUE MEDS GIVEN ORDERED. ALL NEEDS HAVE BEEN MET AND ATTENDED. SAFETY MEASURES MAINTAINED. BED IN LOWEST POSITION, BRAKES LOCKED. SIDE RAILS UP X 2. CALL LIGHT WITHIN REACH. WILL ENDORSE CONTINUITY OF CARE TO ONCOMING SHIFT.
--- NOTE | 2021-06-18 19:45 | NUR ---
MS RN NOTES RECEIVED ON BED SLEEPING,HOMELESS,A/O X2,BREATHING REGULAR,NOT IN ANY FORM OF DISTRESS.IVF NS AT 75ML/HR RATE IN PROGRESS,INFUSING VIA IV PUMP.ON SANDOSTATIN DRIP AT 10ML/HR RATE.AMMONIA LEVEL HIGH,ON LACTULOSE Q 6 HOURS PRN.WILL MONITOR FOR CONFUSION.CALL LIGHT IN REACH,NEEDS ANTICIPATED.
[2021-06-18 20:00] VITALS: BP 128/88
[2021-06-19 05:55] LABS: BASOPHILS % (AUTO) 0.2 % (0.0-2.0); EOSINOPHILS % (AUTO) 1.6 % (0.0-6.0); HEMATOCRIT 29 % (39-51); HEMOGLOBIN 10.1 g/dL (13.5-17.5); LYMPHOCYTES # (AUTO) 0.3 K/uL (0.8-4.8); LYMPHOCYTES % (AUTO) 16.3 % (20.0-44.0); MEAN CORPUSCULAR HGB CONC 34 g/dl (31.0-36.0); MEAN CORPUSCULAR VOLUME 88 fL (80-96); MONOCYTES # (AUTO) 0.4 K/uL (0.1-1.30); MONOCYTES % (AUTO) 20.4 % (2.0-12.0); NEUTROPHILS # (AUTO) 1.3 K/uL (1.8-8.9); NEUTROPHILS % (AUTO) 61.5 % (43.0-81.0); RED BLOOD CELL COUNT(AUTO) 3.32 MIL/uL (4.5-6.0); WHITE BLOOD COUNT (AUTO) 2.1 K/uL (4.3-11.0)
[2021-06-19] MEDS: BLOOD SUGAR DIAGNOSTIC 1 EACH STRIP IN SCH ×3 (05:58→17:41)
[2021-06-19 06:30] LABS: PLATELET COUNT (AUTO) 19 K/uL (150-450)
[2021-06-19 06:57] LABS: CALCIUM, SERUM 7.8 mg/dL (8.5-10.1); CREATININE 0.9 mg/dL (0.6-1.3); MAGNESIUM 1.5 mg/dL (1.8-2.4); POTASSIUM 3.4 mmol/L (3.5-5.1)
--- NOTE | 2021-06-19 07:30 | NUR ---
MS RN OPENING NOTES: RECEIVED PATIENT IN BED SITTING AND AWAKE. A/O X3. PATIENT BREATHS ON ROOM AIR. NO SOB NOTED. IV ACCESS AT LEVON #20 G, INTACT AND PATENT. NO BLEEDING, NO SWELLING NOTED. NS RUNNING AT 75 ML/HR AND SANDOSTATIN RUNNING X 10 ML/HR, BOTH INTACT AND PATENT. ABLE TO MA KE NEEDS KNOWN. SAFETY MEASURES IN PLACE. BED IN LOWEST POSITION AND LOCKED. SIDE RAILS UP X 2. CALL LIGHT WITHIN REACH. WILL CONTINUE TO MONITOR.
[2021-06-19 07:32] LABS: LYMPHOCYTES % (MANUAL) 15 % (16-48); MONOCYTES % (MANUAL) 22 % (0-11.0); NEUTROPHILS % (MANUAL) 63 (42-76)
[2021-06-19] MEDS: RIFAXIMIN 550 MG TABLET PO SCH ×2 (08:31→16:49)
[2021-06-19] MEDS: PANTOPRAZOLE 40 MG VIAL IV SCH ×2 (08:31→16:49)
[2021-06-19] MEDS: FOLIC ACID 1 MG TABLET PO SCH (08:31)
[2021-06-19] MEDS: MULTIVITAMINS,THERAGRAN 1 UDTAB TABLET PO SCH (08:31)
[2021-06-19] MEDS: FERROUS SULFATE (325 MG) 325 MG/TAB TABLET PO SCH ×2 (08:32→16:50)
[2021-06-19] MEDS: ZINC SULFATE 220 MG CAPSULE PO SCH (08:32)
[2021-06-19] MEDS: THIAMINE HCL 100 MG TABLET PO SCH (08:33)
[2021-06-19] MEDS: AMLODIPINE BESYLATE 5 MG TABLET PO SCH (08:34)
[2021-06-19] MEDS: OXYBUTYNIN CHLORIDE ER 5 MG TAB PO SCH (08:34)
[2021-06-19] MEDS ORDERED: POTASSIUM CHLORIDE 20 MEQ TAB.PRT.SR PO SCH (10:00)
[2021-06-19] MEDS: Magnesium 1GM/D5W 100ML PREMIX 100 ML IV SCH ×2 (10:48→12:14)
[2021-06-19] MEDS: DIAZEPAM 5 MG TABLET PO SCH ×2 (10:59→23:00)
[2021-06-19] MEDS: INSULIN REGULAR, HUMAN 100 UNIT/ML 3 ML VIAL SQ PRN (12:23)
[2021-06-19] MEDS: OCTREOTIDE 500 MCG in IV NS 0.9% 99 ML IV PRN (12:28)
[2021-06-19] MEDS: IV NS 0.9% 1,000 ML IV PRN (12:39)
--- NOTE | 2021-06-19 13:29 | NUR ---
MS/RN NOTES SHLOMO MOSQUERA DNP ORDER MORPHINE 2MG IV EVERY 4 HOURS PRN NOTED AND CARRIED OUT.
--- NOTE | 2021-06-19 13:45 | NUR ---
RN NOTES PATIENT VERBALIZED THAT HE WAS OKAY WITH MORPHINE 2MG IV Q4 HOUR PRN, NORCO 10/325MG 1 TAB Q6HR PRN SHLOMO MOSQUERA DNP WAS AWARE AND SHLOMO MOSQUERA DNP ALSO AWARE THAT PATIENT HAVE ALLERGY WITH CODEINE. GERMAN AYALA WAS WITNESS THAT PATIENT VERBALIZES THAT HE WAS OKAY WITH MORPHINE IV. NOTED AND CARRIED OUT.
[2021-06-19] MEDS: MORPHINE SULFATE INJ 2 MG/ML DISP.SYRIN IV PRN (14:09)
--- NOTE | 2021-06-19 18:30 | NUR ---
MS RN CLOSING NOTES: PATIENT IN BED SITTING AND AWAKE. A/O X2. PATIENT IS FORGETFUL. PATIENT BREATHS ON ROOM AIR. NO SOB NOTED. IV ACCESS AT LEVON #20 G, INTACT AND PATENT. NO BLEEDING, NO SWELLING NOTED. NS RUNNING AT 75 ML/HR AND SANDOSTATIN RUNNING X 10 ML/HR, BOTH INTACT AND PATENT. ABLE TO MAKE NEEDS KNOWN. SAFETY MEASURES IN PLACE. ALL MEDICATIONS GIVEN ORDERED. PATIENT TOLERATED WELL AND COOPERATIVE. BED IN LOWEST POSITION AND LOCKED. SIDE RAILS UP X 2. CALL LIGHT AND TABLE WITHIN REACH. WILL ENDORSE NEXT SHIFT FOR CONTINUOUS OF THE CARE.
--- NOTE | 2021-06-19 19:15 | NUR ---
MS RN OPENING NOTES: RECEIVED PATIENT IN BED, AWAKE. A/O X4. NO S/S OF DISTRESS NOTED. NO COMPLAIN OF PAIN. CALL LIGHT WITHIN REACH. BED ALARM ON. BED IN LOWEST AND LOCKED POSITION. URINAL AT THE BEDSIDE. WITH SANDOSTATIN DRIP AT 10ML/HOUR. PATIENT HAS VERY SOFT VOICE.
[2021-06-19 20:00] VITALS: BP 158/70
--- NOTE | 2021-06-20 00:01 | NUR ---
BLOOD JIBSF=208, NO INSULIN COVERAGE NEEDED.
[2021-06-20] MEDS: OCTREOTIDE 500 MCG in IV NS 0.9% 99 ML IV PRN ×3 (00:31→22:55)
[2021-06-20] MEDS: IV NS 0.9% 1,000 ML IV PRN ×2 (02:24→20:19)
[2021-06-20] MEDS: BLOOD SUGAR DIAGNOSTIC 1 EACH STRIP IN SCH ×5 (06:00→23:58)
--- NOTE | 2021-06-20 06:17 | NUR ---
blood sugar twodvoa=327, no insulin coverage needed.
--- NOTE | 2021-06-20 06:23 | NUR ---
PATIENT PULLED HIS IV OUT.
[2021-06-20 06:57] LABS: BASOPHILS % (AUTO) 0.3 % (0.0-2.0); EOSINOPHILS % (AUTO) 1.7 % (0.0-6.0); HEMATOCRIT 30 % (39-51); HEMOGLOBIN 10.3 g/dL (13.5-17.5); LYMPHOCYTES # (AUTO) 0.4 K/uL (0.8-4.8); LYMPHOCYTES % (AUTO) 20.5 % (20.0-44.0); MEAN CORPUSCULAR HGB CONC 34 g/dl (31.0-36.0); MEAN CORPUSCULAR VOLUME 88 fL (80-96); MONOCYTES # (AUTO) 0.4 K/uL (0.1-1.30); MONOCYTES % (AUTO) 21.9 % (2.0-12.0); NEUTROPHILS % (AUTO) 55.6 % (43.0-81.0); RED BLOOD CELL COUNT(AUTO) 3.42 MIL/uL (4.5-6.0)
--- NOTE | 2021-06-20 06:57 | NUR ---
IV REINSERTED BY JAMIE JIMENEZ ON THE RIGHT HAND FINGER, G22.
[2021-06-20 07:06] LABS: CALCIUM, SERUM 7.8 mg/dL (8.5-10.1); MAGNESIUM 1.6 mg/dL (1.8-2.4); PHOSPHORUS 3.6 mg/dL (2.5-4.9); POTASSIUM 3.5 mmol/L (3.5-5.1)
[2021-06-20 07:21] LABS: PLATELET COUNT (AUTO) 28 K/uL (150-450); WHITE BLOOD COUNT (AUTO) 1.8 K/uL (4.3-11.0)
[2021-06-20 08:00] VITALS: BP 125/71
--- NOTE | 2021-06-20 08:00 | NUR ---
RN Opening notes: Received pt. asleep in bed, breathing is even and unlabored. IV line is clogged and can not be flushed. New IV reinserted on the left hand, with Gauge #20 and with good blood return. Received a call for the labs for a critical labs if WBC 1.8 and Platelet of 28. charge nurse notified and notified Wolfgang Page Addendum: 06/20/21 at 1434 by DIANE MUHAMMAD RN IV gauge #22 was used
[2021-06-20] MEDS: PANTOPRAZOLE 40 MG VIAL IV SCH ×2 (08:32→16:28)
[2021-06-20] MEDS: MULTIVITAMINS,THERAGRAN 1 UDTAB TABLET PO SCH (08:32)
[2021-06-20] MEDS: ZINC SULFATE 220 MG CAPSULE PO SCH (08:32)
[2021-06-20] MEDS: FOLIC ACID 1 MG TABLET PO SCH (08:32)
[2021-06-20] MEDS: AMLODIPINE BESYLATE 5 MG TABLET PO SCH (08:32)
[2021-06-20] MEDS: RIFAXIMIN 550 MG TABLET PO SCH ×2 (08:33→16:28)
[2021-06-20] MEDS: OXYBUTYNIN CHLORIDE ER 5 MG TAB PO SCH (08:33)
[2021-06-20] MEDS: FERROUS SULFATE (325 MG) 325 MG/TAB TABLET PO SCH ×2 (08:33→16:28)
[2021-06-20] MEDS: THIAMINE HCL 100 MG TABLET PO SCH (08:33)
[2021-06-20] MEDS: Magnesium 1GM/D5W 100ML PREMIX 100 ML IV SCH ×2 (10:33→11:53)
[2021-06-20] MEDS: DIAZEPAM 5 MG TABLET PO SCH ×2 (11:18→22:09)
[2021-06-20 12:01] LABS: BAND % (MANUAL) 1 % (0.0-5.0); LYMPHOCYTES % (MANUAL) 21 % (16-48); MONOCYTES % (MANUAL) 22 % (0-11.0); NEUTROPHILS % (MANUAL) 56 (42-76)
[2021-06-20 16:00] VITALS: BP 117/73
--- NOTE | 2021-06-20 19:40 | NUR ---
RN OPENING NOTES RECEIVED PT IN BED, ASLEEP, AWAKENS TO VERBAL STIMULI. AOx3. ON RA AND TOLERATING WELL. NO SOB NOTED. NO S/SX OF RESPIRATORY DISTRESS NOTED. IV ACCESS IN L HAND #22G RUNNING NS @ 75ML/HR. SAFETY PRECAUTIONS IN PLACE: BED IN LOWEST, LOCKED POSITION, BRAKES ON, AND SIDERAILS UPx2. TABLE AND CALL LIGHT WITHIN REACH. WILL CONTINUE TO MONITOR.
[2021-06-20 20:00] VITALS: BP 131/59
--- NOTE | 2021-06-20 20:54 | NUR ---
PER DR. AN LEAVE SANDOSTATIN ON 10 ML/HR. HAVE DAY DOCTOR WHO IS FAMILIAR WITH PATIENT TITRATE SANDOSTATIN.
[2021-06-20] MEDS: MORPHINE SULFATE INJ 2 MG/ML DISP.SYRIN IV PRN (23:34)
--- NOTE | 2021-06-20 23:35 | NUR ---
ADMINISTERED MORPHINE FOR PAIN PER MD ORDER. VS WNL. WILL CONTINUE TO MONITOR.
[2021-06-21] MEDS: BLOOD SUGAR DIAGNOSTIC 1 EACH STRIP IN SCH ×3 (05:45→17:26)
[2021-06-21 06:35] LABS: BASOPHILS % (AUTO) 0.4 % (0.0-2.0); EOSINOPHILS % (AUTO) 1.4 % (0.0-6.0); HEMATOCRIT 34 % (39-51); HEMOGLOBIN 11.5 g/dL (13.5-17.5); LYMPHOCYTES # (AUTO) 0.4 K/uL (0.8-4.8); LYMPHOCYTES % (AUTO) 21.8 % (20.0-44.0); MEAN CORPUSCULAR HGB CONC 34 g/dl (31.0-36.0); MEAN CORPUSCULAR VOLUME 88 fL (80-96); MONOCYTES # (AUTO) 0.5 K/uL (0.1-1.30); MONOCYTES % (AUTO) 22.6 % (2.0-12.0); NEUTROPHILS # (AUTO) 1.1 K/uL (1.8-8.9); NEUTROPHILS % (AUTO) 53.8 % (43.0-81.0); RED BLOOD CELL COUNT(AUTO) 3.87 MIL/uL (4.5-6.0)
--- NOTE | 2021-06-21 06:48 | NUR ---
RN CLOSING NOTES PT IN BED, ASLEEP, AWAKENS TO VERBAL STIMULI. AOx3. ON RA AND TOLERATING WELL. NO SOB NOTED. NO S/SX OF RESPIRATORY DISTRESS NOTED. IV ACCESS IN L HAND #22G RUNNING NS @ 75ML/HR. ALL NEEDS MET. PT KEPT CLEAN AND DRY. TREATED PAIN ONCE DURING SHIFT. SAFETY PRECAUTIONS IN PLACE: BED IN LOWEST, LOCKED POSITION, BRAKES ON, AND SIDERAILS UPx2. TABLE AND CALL LIGHT WITHIN REACH. WILL ENDORSE TO ONCOMING SHIFT FOR BETSY.
[2021-06-21 06:55] LABS: ALBUMIN 2.8 g/dL (3.4-5.0); BILIRUBIN,DIRECT 2.3 mg/dL (0.0-0.2); BILIRUBIN,TOTAL 3.5 mg/dL (0.2-1.0); CALCIUM, SERUM 8.1 mg/dL (8.5-10.1); CREATININE 1.1 mg/dL (0.6-1.3); MAGNESIUM 1.7 mg/dL (1.8-2.4); PHOSPHORUS 3.9 mg/dL (2.5-4.9); POTASSIUM 3.7 mmol/L (3.5-5.1); TOTAL PROTEIN, SERUM 7.2 g/dL (6.4-8.2)
[2021-06-21 07:26] LABS: PLATELET COUNT (AUTO) 34 K/uL (150-450)
--- NOTE | 2021-06-21 07:30 | NUR ---
RN OPENING NOTES: RECEIVED PT IN BED, ASLEEP, AWAKENS TO VERBAL STIMULI. AOx3. ON RA AND TOLERATING WELL. NO SOB NOTED. NO S/SX OF RESPIRATORY DISTRESS NOTED. IV ACCESS IN L HAND #22G RUNNING NS @ 75ML/HR. SAFETY PRECAUTIONS IN PLACE: BED IN LOWEST, LOCKED POSITION, BRAKES ON, AND SIDE RAILS UPx2. TABLE AND CALL LIGHT WITHIN REACH. WILL CONTINUE TO MONITOR.
[2021-06-21 08:00] VITALS: BP 130/74
[2021-06-21] MEDS ORDERED: MAGNESIUM OXIDE 400 MG TABLET PO ONE (08:30)
[2021-06-21] MEDS: RIFAXIMIN 550 MG TABLET PO SCH ×2 (08:40→16:23)
[2021-06-21] MEDS: OXYBUTYNIN CHLORIDE ER 5 MG TAB PO SCH (08:41)
[2021-06-21] MEDS: PANTOPRAZOLE 40 MG VIAL IV SCH ×2 (08:41→16:23)
[2021-06-21] MEDS: FERROUS SULFATE (325 MG) 325 MG/TAB TABLET PO SCH ×2 (08:41→16:23)
[2021-06-21] MEDS: AMLODIPINE BESYLATE 5 MG TABLET PO SCH (08:41)
[2021-06-21] MEDS: FOLIC ACID 1 MG TABLET PO SCH (08:42)
[2021-06-21] MEDS: ZINC SULFATE 220 MG CAPSULE PO SCH (08:55)
[2021-06-21] MEDS: THIAMINE HCL 100 MG TABLET PO SCH (08:55)
[2021-06-21] MEDS: MULTIVITAMINS,THERAGRAN 1 UDTAB TABLET PO SCH (08:55)
[2021-06-21] MEDS: MORPHINE SULFATE INJ 2 MG/ML DISP.SYRIN IV PRN ×2 (08:56→16:24)
[2021-06-21] MEDS: OCTREOTIDE 500 MCG in IV NS 0.9% 99 ML IV PRN (10:05)
[2021-06-21 10:57] LABS: BAND % (MANUAL) 1 % (0.0-5.0); LYMPHOCYTES % (MANUAL) 18 % (16-48); METAMYELOCYTES % 1 % (0-0); MONOCYTES % (MANUAL) 22 % (0-11.0); MYELOCYTES % 2 % (0-0); NEUTROPHILS % (MANUAL) 56 (42-76)
[2021-06-21] MEDS: DIAZEPAM 5 MG TABLET PO SCH ×2 (11:09→22:45)
[2021-06-21] MEDS: INSULIN REGULAR, HUMAN 100 UNIT/ML 3 ML VIAL SQ PRN ×2 (11:40→17:46)
[2021-06-21] MEDS: IV NS 0.9% 1,000 ML IV PRN (15:01)
[2021-06-21 16:00] VITALS: BP 132/77
--- NOTE | 2021-06-21 18:42 | NUR ---
RN CLOSING NOTES: PT IN BED, AWAKE . AOx3. ON RA AND TOLERATING WELL. NO SOB NOTED. NO S/SX OF RESPIRATORY DISTRESS NOTED. IV ACCESS IN L HAND #22 G RUNNING NS @ 75ML/HR. DUE MEDS GIVEN ORDERED. PATIENT COMPLIANT AND TOLERATED WELL. SAFETY PRECAUTIONS IN PLACE: BED IN LOWEST, LOCKED POSITION, BRAKES ON, AND SIDE RAILS UPx2. TABLE AND CALL LIGHT WITHIN REACH. WILL ENDORSE ONCOMING SHIFT FOR BETSY.
--- NOTE | 2021-06-21 19:15 | NUR ---
MS RN OPENING NOTES: RECEIVED PATIENT IN BED, AWAKE, A/O X4. NO S/S OF DISTRESS NOTED. NO COMPLAIN OF PAIN. CALL LIGHT WITHIN REACH. BED IN LOWEST AND LOCKED POSITION. BED ALARM ON. NO BLEEDING NOTED. URINAL AT THE BEDSIDE.
[2021-06-21 20:00] VITALS: BP 134/72
--- NOTE | 2021-06-22 00:25 | NUR ---
BLOOD SUGAR =98, NO INSULIN COVERAGE NEEDED.
[2021-06-22] MEDS: MORPHINE SULFATE INJ 2 MG/ML DISP.SYRIN IV PRN ×4 (02:55→22:32)
[2021-06-22] MEDS: BLOOD SUGAR DIAGNOSTIC 1 EACH STRIP IN SCH ×5 (06:00→23:11)
--- NOTE | 2021-06-22 06:19 | NUR ---
blood sugar=91, no insulin coverage needed.
[2021-06-22 07:28] LABS: CALCIUM, SERUM 8.1 mg/dL (8.5-10.1); CREATININE 0.8 mg/dL (0.6-1.3); POTASSIUM 3.7 mmol/L (3.5-5.1)
--- NOTE | 2021-06-22 07:30 | NUR ---
RN OPENING NOTES: RECEIVED PT IN BED, ASLEEP, AWAKENS TO VERBAL STIMULI. AOx3. ON RA AND TOLERATING WELL. NO SOB NOTED. NO S/SX OF RESPIRATORY DISTRESS NOTED. IV ACCESS IN L FA #22G RUNNING NS @ 75ML/HR. SAFETY PRECAUTIONS IN PLACE: BED IN LOWEST, LOCKED POSITION, BRAKES ON, AND SIDE RAILS UPx2. TABLE AND CALL LIGHT WITHIN REACH. WILL CONTINUE TO MONITOR.
[2021-06-22 08:14] LABS: BASOPHILS % (AUTO) 0.5 % (0.0-2.0); EOSINOPHILS % (AUTO) 1.2 % (0.0-6.0); HEMATOCRIT 33 % (39-51); HEMOGLOBIN 11.2 g/dL (13.5-17.5); LYMPHOCYTES # (AUTO) 0.4 K/uL (0.8-4.8); LYMPHOCYTES % (AUTO) 18.3 % (20.0-44.0); MEAN CORPUSCULAR HGB CONC 34 g/dl (31.0-36.0); MEAN CORPUSCULAR VOLUME 88 fL (80-96); MONOCYTES # (AUTO) 0.4 K/uL (0.1-1.30); MONOCYTES % (AUTO) 16.6 % (2.0-12.0); NEUTROPHILS # (AUTO) 1.5 K/uL (1.8-8.9); NEUTROPHILS % (AUTO) 63.4 % (43.0-81.0); RED BLOOD CELL COUNT(AUTO) 3.74 MIL/uL (4.5-6.0); WHITE BLOOD COUNT (AUTO) 2.3 K/uL (4.3-11.0)
[2021-06-22 08:24] LABS: PLATELET COUNT (AUTO) 44 K/uL (150-450)
[2021-06-22 08:36] VITALS: BP 119/70
[2021-06-22] MEDS: THIAMINE HCL 100 MG TABLET PO SCH (08:51)
[2021-06-22] MEDS: RIFAXIMIN 550 MG TABLET PO SCH ×2 (08:51→16:07)
[2021-06-22] MEDS: PANTOPRAZOLE 40 MG TABLET.DR PO SCH ×2 (08:51→21:08)
[2021-06-22] MEDS: MULTIVITAMINS,THERAGRAN 1 UDTAB TABLET PO SCH (08:51)
[2021-06-22] MEDS: ZINC SULFATE 220 MG CAPSULE PO SCH (08:51)
[2021-06-22] MEDS: AMLODIPINE BESYLATE 5 MG TABLET PO SCH (08:52)
[2021-06-22] MEDS: FERROUS SULFATE (325 MG) 325 MG/TAB TABLET PO SCH ×2 (08:52→16:07)
[2021-06-22] MEDS: FOLIC ACID 1 MG TABLET PO SCH (08:52)
[2021-06-22] MEDS: OXYBUTYNIN CHLORIDE ER 5 MG TAB PO SCH (08:52)
[2021-06-22] MEDS: Magnesium 1GM/D5W 100ML PREMIX 100 ML IV SCH ×2 (10:05→11:06)
[2021-06-22] MEDS: DIAZEPAM 5 MG TABLET PO SCH ×2 (11:06→23:11)
[2021-06-22 11:07] LABS: BAND % (MANUAL) 1 % (0.0-5.0); EOSINOPHILS % (MANUAL) 3 % (0-4); LYMPHOCYTES % (MANUAL) 19 % (16-48); MONOCYTES % (MANUAL) 15 % (0-11.0); NEUTROPHILS % (MANUAL) 62 (42-76)
[2021-06-22] MEDS: INSULIN REGULAR, HUMAN 100 UNIT/ML 3 ML VIAL SQ PRN ×2 (11:15→18:14)
[2021-06-22] MEDS: IV NS 0.9% 1,000 ML IV PRN (13:27)
[2021-06-22 16:00] VITALS: BP 136/74
--- NOTE | 2021-06-22 18:30 | NUR ---
RN CLOSING NOTES: PT IN BED, AWAKE . AOx3. ON RA AND TOLERATING WELL. NO SOB NOTED. NO S/SX OF RESPIRATORY DISTRESS NOTED. IV ACCESS IN L UA#22 G RUNNING NS @ 75ML/HR. DUE MEDS GIVEN ORDERED. PATIENT COMPLIANT AND TOLERATED WELL. SAFETY PRECAUTIONS IN PLACE: BED IN LOWEST, LOCKED POSITION, BRAKES ON, AND SIDE RAILS UPx2. TABLE AND CALL LIGHT WITHIN REACH. WILL ENDORSE ONCOMING SHIFT FOR BETSY.
--- NOTE | 2021-06-22 19:30 | NUR ---
MS RN NOTES RECEIVED ON BED A/O X4,FORGETFUL,BREATHING REGULAR,NOT IN ANY FORM OF DISTRESS,SALINE LOCK LEFT FOREARM INTACT AND PATENT,IVF NS AY 75ML/HR RATE INFUSING WELL VIA IV PUMP.NOTED MULTIPLE BRUISES ON RIGHT AND LEFT ARM.DENIES DISCOMFORTS AT THE MOMENT.CALL LIGHT IN REACH,NEEDS ANTICIPATED.
[2021-06-22 20:00] VITALS: BP 103/77
--- NOTE | 2021-06-22 22:32 | NUR ---
MS RN NOTES C/O ABDOMINAL PAIN 8/10 ON PAIN SCALE,MORPHINE 2MG IV GIVEN ORDERED.
--- NOTE | 2021-06-23 | NUR ---
MS RN NOTES ACCU-CHECK BLOOD SUGAR CHECK 106,NO INSULIN COVERAGE.
[2021-06-23] MEDS: IV NS 0.9% 1,000 ML IV PRN ×2 (03:36→22:15)
--- NOTE | 2021-06-23 05:30 | NUR ---
MS RN NOTES ACCU-CHECK BLOOD SUGAR CHECK 95,NO INSULIN COVERAGE
[2021-06-23] MEDS: BLOOD SUGAR DIAGNOSTIC 1 EACH STRIP IN SCH ×3 (06:14→18:08)
[2021-06-23] MEDS: MORPHINE SULFATE INJ 2 MG/ML DISP.SYRIN IV PRN ×4 (06:25→22:29)
[2021-06-23 06:27] LABS: BASOPHILS % (AUTO) 0.5 % (0.0-2.0); EOSINOPHILS % (AUTO) 0.8 % (0.0-6.0); HEMATOCRIT 35 % (39-51); HEMOGLOBIN 11.7 g/dL (13.5-17.5); LYMPHOCYTES # (AUTO) 0.5 K/uL (0.8-4.8); LYMPHOCYTES % (AUTO) 18.2 % (20.0-44.0); MEAN CORPUSCULAR HGB CONC 34 g/dl (31.0-36.0); MEAN CORPUSCULAR VOLUME 89 fL (80-96); MONOCYTES # (AUTO) 0.3 K/uL (0.1-1.30); MONOCYTES % (AUTO) 13.3 % (2.0-12.0); NEUTROPHILS # (AUTO) 1.8 K/uL (1.8-8.9); NEUTROPHILS % (AUTO) 67.2 % (43.0-81.0); RED BLOOD CELL COUNT(AUTO) 3.88 MIL/uL (4.5-6.0); WHITE BLOOD COUNT (AUTO) 2.6 K/uL (4.3-11.0)
[2021-06-23 06:38] LABS: ALBUMIN 2.9 g/dL (3.4-5.0); BILIRUBIN,TOTAL 3.3 mg/dL (0.2-1.0); CALCIUM, SERUM 7.9 mg/dL (8.5-10.1); CREATININE 1.1 mg/dL (0.6-1.3); MAGNESIUM 1.8 mg/dL (1.8-2.4); PHOSPHORUS 3.4 mg/dL (2.5-4.9); TOTAL PROTEIN, SERUM 7.5 g/dL (6.4-8.2)
--- NOTE | 2021-06-23 06:56 | NUR ---
MS RN NOTES ON BED A/O X3-4,MORE ALERT THAN BEFORE,WILL CONTINUE TO MONITOR LAB VALUES.IN NO ACUTE DISTRESS
[2021-06-23 06:59] LABS: PLATELET COUNT (AUTO) 45 K/uL (150-450)
--- NOTE | 2021-06-23 07:30 | NUR ---
MS RN OPENING NOTE RECEIVED PT AWAKE IN BED. A/O X4. PT IS STABLE ON ROOM AIR WITH NO SOB OR S/S OF RESPIRATORY DISTRESS NOTED. PT HAS NO C/O PAIN OR DISCOMFORT AT THIS TIME. IV ACCESS IN LEFT FOREARM #22 GAUGE RUNNING NS AT 75 ML/HR, INTACT AND PATENT. SAFETY PRECAUTIONS MAINTAINED. BED IN LOWEST LOCKED POSITION, HOB ELEVATED, SIDE RAILS UP X2. CALL LIGHT AND TABLE WITHIN REACH. WILL CONTINUE TO MONITOR.
[2021-06-23 07:36] LABS: BAND % (MANUAL) 2 % (0.0-5.0); EOSINOPHILS % (MANUAL) 2 % (0-4); LYMPHOCYTES % (MANUAL) 18 % (16-48); MONOCYTES % (MANUAL) 11 % (0-11.0); NEUTROPHILS % (MANUAL) 67 (42-76)
[2021-06-23 08:36] VITALS: BP 99/60
[2021-06-23] MEDS: THIAMINE HCL 100 MG TABLET PO SCH (09:00)
[2021-06-23] MEDS: FERROUS SULFATE (325 MG) 325 MG/TAB TABLET PO SCH ×2 (09:00→16:46)
[2021-06-23] MEDS: FOLIC ACID 1 MG TABLET PO SCH (09:00)
[2021-06-23] MEDS: MULTIVITAMINS,THERAGRAN 1 UDTAB TABLET PO SCH (09:00)
[2021-06-23] MEDS: PANTOPRAZOLE 40 MG TABLET.DR PO SCH ×2 (09:00→20:24)
[2021-06-23] MEDS: OXYBUTYNIN CHLORIDE ER 5 MG TAB PO SCH (09:00)
[2021-06-23] MEDS: ZINC SULFATE 220 MG CAPSULE PO SCH (09:00)
[2021-06-23] MEDS: RIFAXIMIN 550 MG TABLET PO SCH ×2 (09:00→16:45)
[2021-06-23] MEDS: AMLODIPINE BESYLATE 5 MG TABLET PO SCH (09:02)
[2021-06-23 10:00] VITALS: BP 105/68
[2021-06-23] MEDS: DIAZEPAM 5 MG TABLET PO SCH ×2 (10:31→22:09)
--- NOTE | 2021-06-23 11:55 | NUR ---
"SS note for Discharge Placement: SS followed up for discharge planning. SW offered pt. senior living placement and tap card. Pt. was ambivalent about going to a homeless senior living. Pt. asked how much a board and care was. SW told pt. it was about 900 dollars a month. Pt. stated it was too expensive. Pt. stated he has a friends house he could stay at but did not provide SW any information. Patient stated he will be calling his friend. SW told pt. to tell the nurse if he changed his mind about senior living or board and care. SW will remain available as needed. SW left the following homeless resources and tap card with pt. Year-round shelters: [place] [address] [place] [address] ; [place] [place] [facility] [place] [address] [place] [address]; [place] [facility] [id number] [facility] [address] Winter Shelters: [facility] Provider: [facility] Address: [address] [facility], [address] # of Beds: 47 Population Served: [facility] 6 | [facility] Provider: [facility] Address: [address], [address] # of Beds: 66 Population Served: [facility] [place] Provider: [facility] Address: [address] [facility], [address] # of Beds: 56 Population Served: [facility] Kwan J[place] Provider: /[facility] Address: [address] [facility], [address] # of Beds: 49 Population Served: [facility] 8 | [facility] [place] Provider: [facility] Address: [address] [facility], [address] # of Beds: 37 Population Served: [facility] Hygiene: [facility]: [address] [address] [place] ; [facility] [address] [facility] ; [facility] [address] [place] Maryanne . Food Resources: [employer] [facility] at [facility]- [address] [place]; Meet Each Need with Dignity ([facility]) [address] [place]; [facility] [address] [facility]; [facility] [address] [facility] Keller. Mental Health resources provided: [facility] [address] [place], [place] [address] ; [facility] [address] [facility] [address], [place] [address] ; [facility] [address] [address] [place], [place] [id number] ; [facility] [address] [place], [place] [phone] Healthcare Clinics: [facility] [address] [facility], [address] [place]. [place] ; [facility] [address] [place] [address]; [facility] [address] [facility]. [place] [address] [phone] Counseling--Outpatient [facility] [address], [address] [place], [place] [address] (Specializes in in-depth psychotherapy for emotional distress: anxiety, depression, interpersonal conflicts, life transitions, childhood abuse) [facility] [address] [place] [address] (Assist with solving problem marital difficulties, separation & divorce, aging parents, & grief, chronic & terminal illness) [facility] [address] [place] [address] (Deal with loss & grief, anxiety, marital difficulties) Homebound/Mental Health Services [address], [address] [place], [place] [address] (Provide in-home mental services to people who are incapable of leaving their homes) [facility] Elderly Senior Service/Resource Center [address] [place] [address] [facility] [address] [place] [address] PSYCHIATRIC OUTPATIENT SERVICES [facility] Partial Hospitalization and Intensive Outpatient Program (Managed Care and [place] Only)[address] [facility] [phone] [facility] Partial Hospitalization and Outpatient [address] [place], [place] [phone] [facility] [place] Hac[address] [facility] [address] [place], [place] [phone] [facility] Partial Hospitalization and Outpatient [address] [place], [phone] Substance Abuse resources provided included: [facility] Substance Abuse Self-Helpline ([facility]) ; [facility] [address] [facility]. [place] [address] ; [facility] [address] [facility] [address] ; [facility] [address] [facility] [address] ; [facility] [address] [facility] [address] ; [facility] Treatment [facility] [address] [facility] [address] ; [facility] [address] [facility] [phone] ; [facility] Substance Abuse Helpline(SAS)[facility] ; [facility] ; [facility] [place]; [facility] [place]; [facility] [place]; [facility] Rodney Madd[place]; [facility] [place]; [place] [facility] [place]; [facility] [place]; [facility] [place], [facility]. [facility] Mariah; Alcoholics Anonymous -[facility]; Uo-Hrje-Mmxfaeb ; Marijuana Anonymous [facility]; Narcotics Anonymous www.na.org;"
[2021-06-23 16:03] VITALS: BP 139/70
--- NOTE | 2021-06-23 18:43 | NUR ---
MS RN CLOSING NOTE PT AWAKE IN BED. A/O X4. PT IS STABLE ON ROOM AIR WITH NO SOB OR S/S OF RESPIRATORY DISTRESS NOTED. PT HAS NO C/O PAIN OR DISCOMFORT AT THIS TIME. IV ACCESS IN LEFT FOREARM #22 GAUGE RUNNING NS AT 75 ML/HR, INTACT AND PATENT. ALL NEEDS MET AT THIS TIME. SAFETY PRECAUTIONS MAINTAINED. BED IN LOWEST LOCKED POSITION, HOB ELEVATED, SIDE RAILS UP X2. CALL LIGHT AND TABLE WITHIN REACH. WILL ENDORSE TO ONCOMING SHIFT FOR BETSY.
[2021-06-23 20:00] VITALS: BP 109/66
--- NOTE | 2021-06-23 20:30 | NUR ---
Patient is A&Ox3, sometimes forgetful. Calm and cooperative at this time. Denies any needs at this time. Denies any s/s of bleeding. no obvious signs. Reminded pt. to call nurse if having a BM before flushing so it can be visually assessed. Bed alarm on. Safety measures in place. LFA #22G flushed and patent.
--- NOTE | 2021-06-23 20:30 | NUR ---
Patient is A&Ox3, sometimes forgetful. Calm and cooperative at this time. Arash
[2021-06-24] MEDS: BLOOD SUGAR DIAGNOSTIC 1 EACH STRIP IN SCH ×3 (00:26→12:41)
[2021-06-24] MEDS: IV NS 0.9% 1,000 ML IV PRN (06:05)
[2021-06-24 06:38] LABS: BASOPHILS % (AUTO) 0.6 % (0.0-2.0); EOSINOPHILS % (AUTO) 1.1 % (0.0-6.0); HEMATOCRIT 33 % (39-51); HEMOGLOBIN 11.3 g/dL (13.5-17.5); LYMPHOCYTES # (AUTO) 0.4 K/uL (0.8-4.8); LYMPHOCYTES % (AUTO) 17.8 % (20.0-44.0); MEAN CORPUSCULAR HGB CONC 34 g/dl (31.0-36.0); MEAN CORPUSCULAR VOLUME 90 fL (80-96); MONOCYTES # (AUTO) 0.3 K/uL (0.1-1.30); MONOCYTES % (AUTO) 12.7 % (2.0-12.0); NEUTROPHILS # (AUTO) 1.6 K/uL (1.8-8.9); NEUTROPHILS % (AUTO) 67.8 % (43.0-81.0); RED BLOOD CELL COUNT(AUTO) 3.67 MIL/uL (4.5-6.0); WHITE BLOOD COUNT (AUTO) 2.3 K/uL (4.3-11.0)
--- NOTE | 2021-06-24 06:55 | NUR ---
Patient is A&Ox3. In stable condition. No signs of distress. Denies any needs at this time. NS infusing at 75cc/hr no signs of infiltration to IV. No signs of bleeding overnight. All safety measures in place.
[2021-06-24 06:59] LABS: CREATININE 0.9 mg/dL (0.6-1.3); POTASSIUM 3.8 mmol/L (3.5-5.1)
[2021-06-24 07:40] LABS: PLATELET COUNT (AUTO) 43 K/uL (150-450)
--- NOTE | 2021-06-24 08:00 | NUR ---
m/s labor economics teacher: notes received pt in bed awake, more alert and oriented x 4. denies any discomfort at this time. no rectal bleeding reported . pt for d'c home today, awaiting order. pt made aware and agreed to go to [facility].
[2021-06-24] MEDS: MORPHINE SULFATE INJ 2 MG/ML DISP.SYRIN IV PRN (08:39)
--- NOTE | 2021-06-24 08:51 | NUR ---
m/s information technology project manager: notes ema weathers ([facility]) on the phone and informed her re: wbc 2.3 and plt 43 with no new order and informed me that she is discharging him today. pt aware.
[2021-06-24] MEDS: FERROUS SULFATE (325 MG) 325 MG/TAB TABLET PO SCH (09:14)
[2021-06-24] MEDS: FOLIC ACID 1 MG TABLET PO SCH (09:14)
[2021-06-24] MEDS: MULTIVITAMINS,THERAGRAN 1 UDTAB TABLET PO SCH (09:15)
[2021-06-24] MEDS: PANTOPRAZOLE 40 MG TABLET.DR PO SCH (09:15)
[2021-06-24] MEDS: OXYBUTYNIN CHLORIDE ER 5 MG TAB PO SCH (09:15)
[2021-06-24] MEDS: ZINC SULFATE 220 MG CAPSULE PO SCH (09:15)
[2021-06-24] MEDS: THIAMINE HCL 100 MG TABLET PO SCH (09:15)
[2021-06-24] MEDS: AMLODIPINE BESYLATE 5 MG TABLET PO SCH (09:15)
[2021-06-24] MEDS: RIFAXIMIN 550 MG TABLET PO SCH (09:15)
[2021-06-24 09:25] VITALS: BP 120/75
[2021-06-24] MEDS ORDERED: DIAZ5TAB4 PO (09:50)
[2021-06-24] MEDS ORDERED: MULT-24 PO (09:50)
[2021-06-24] MEDS ORDERED: Thiamine HCL PO (09:50)
[2021-06-24] MEDS ORDERED: LACT10SO58 PO (09:50)
[2021-06-24] MEDS ORDERED: PANT40TA49 PO (09:50)
[2021-06-24] MEDS ORDERED: Folic Acid PO (09:50)
[2021-06-24] MEDS ORDERED: RIFA550T PO (09:50)
[2021-06-24] MEDS ORDERED: FERR325T28 PO (09:50)
[2021-06-24] MEDS ORDERED: Zinc Sulfate PO (09:50)
[2021-06-24] MEDS: DIAZEPAM 5 MG TABLET PO SCH (11:20)
[2021-06-24] MEDS: INSULIN REGULAR, HUMAN 100 UNIT/ML 3 ML VIAL SQ PRN (12:04)
--- NOTE | 2021-06-24 12:20 | NUR ---
m/s electrical engineering manager: notes discharge instructions including e scripts and prescriptions given to pt and verbalized understanding. h/l removed with tip intact. homeless half-way form signed by pt with director social welfare and agrees to go to half-way when discharge.
--- NOTE | 2021-06-24 12:30 | NUR ---
m/s web operations lead: professor of environmental science f/u rohan ([employer]) here and okay for pt to go home as stated.
--- NOTE | 2021-06-24 13:00 | NUR ---
m/s hand mexican food maker: notes discharge home in stable condition via ambulatory with d'c papers, prescriptions, and belongings.
== END 2021-06-24 14:11 | disposition home or self-care (01) | DRG 280 ==
LOC: ER 11:27 → MED 15:36 → TELE 19:44 → MED 06-15 07:58
PROVIDERS: ADMIT Registered Nurse; ATTEND Registered Nurse
PROC: 06L38CZ Occlusion of Esophageal Vein with Extraluminal Device, Via Natural or Artificial Opening Endoscopic (ICD-10-PCS; principal; 2021-06-16)
PROC: 30233K1 Transfusion of Nonautologous Frozen Plasma into Peripheral Vein, Percutaneous Approach (ICD-10-PCS; 2021-06-16)
PROC: 30233R1 Transfusion of Nonautologous Platelets into Peripheral Vein, Percutaneous Approach (ICD-10-PCS; 2021-06-16)
PROC: 30233M1 Transfusion of Nonautologous Plasma Cryoprecipitate into Peripheral Vein, Percutaneous Approach (ICD-10-PCS; 2021-06-16)
PROC: 05H533Z Insertion of Infusion Device into Right Subclavian Vein, Percutaneous Approach (ICD-10-PCS; 2021-06-16)
PROC: B546ZZA Ultrasonography of Right Subclavian Vein, Guidance (ICD-10-PCS; 2021-06-16)
DX: K70.31 Alcoholic cirrhosis of liver with ascites (principal); K70.40 Alcoholic hepatic failure without coma; I85.11 Secondary esophageal varices with bleeding; D61.818 Other pancytopenia; D68.8 Other specified coagulation defects; D70.9 Neutropenia, unspecified; E83.51 Hypocalcemia; E88.09 Other disorders of plasma-protein metabolism, not elsewhere classified; K76.6 Portal hypertension; D69.59 Other secondary thrombocytopenia; B19.20 Unspecified viral hepatitis C without hepatic coma; E11.9 Type 2 diabetes mellitus without complications; K31.89 Other diseases of stomach and duodenum; Z20.822 Contact with and (suspected) exposure to COVID-19; E66.9 Obesity, unspecified; E83.42 Hypomagnesemia; E87.6 Hypokalemia; F17.210 Nicotine dependence, cigarettes, uncomplicated; I10 Essential (primary) hypertension; Z59.00 Homelessness unspecified; Y90.9 Presence of alcohol in blood, level not specified; F19.10 Other psychoactive substance abuse, uncomplicated; E80.6 Other disorders of bilirubin metabolism; K80.20 Calculus of gallbladder without cholecystitis without obstruction; R16.1 Splenomegaly, not elsewhere classified; Z79.84 Long term (current) use of oral hypoglycemic drugs; F10.139 Alcohol abuse with withdrawal, unspecified
CPT/HCPCS: 36410; 36415; 71046; 74170-TC; 76705-TC; 78226; 80048-TC; 80053-TC; 80061-TC; 80076-TC; 82105; 82140-TC; 82728-TC; 82784; 82962-TC; 83540-TC; 83690-TC; 83735-TC; 84100-TC; 84155; 84165; 84443-TC; 85025-TC; 85385-TC; 85396; 85610-TC; 85730-TC; 86334; 86706; 86803; 86850-TC; 86900-TC; 87040-TC; 87081-TC; 87340; A4217; A9537; C9113; C9803; G0378; J0330; J1200; J1447; J1815; J2060; J2270; J2354; J2405; J2543; J2704; J2765; J3411; J3475; J3480; J3490; J7030; J7042; J7050; J7060; P9012; P9017; P9034; Q9967